=== PATIENT | male | born 1940 | race Caucasian/White ===

== ENCOUNTER 2017-02-08 04:30 | Inpatient (IN) | payer OTHER ==
[~2017-02-08] VITALS: Ht 167.6 cm; Wt 72.0 kg
[~2017-02-08 04:30] MED LIST: ASPI81TA28 PO; COEN1CAP17 PO; EZET10TA47 PO; FISH1CAP3 PO; LPT10 PO; TAMS0.4C59 PO
--- NOTE | 2017-02-08 04:53 | EMERGENCY ROOM VISIT NOTE ---
History Report prepared by [place]: Devaughn Trejo Under the Supervision of: Dr. Dayton Hernandez D.O. First contact with patient: 04:40 Chief Complaint: ABDOMINAL PAIN Stated Complaint: STOMACH History of Present Illness The patient is a 77 year old male who presents to the Emergency Room with complaints of persistent abdominal pain for the past two days. The pain is localized to the center of the abdomen and does not radiate to the back. The pain is rated 5/10 and severity and has not improved or worsened. The patient has not been eating or sleeping secondary to pain. He has not had any problems with his bowels since the onset of his pain. He denies any history of abdominal surgery. He denies any history of aneurysms or hernias. The patient does not have any known drug allergies. Source of History: patient Onset: two days ago Position: abdomen (center) Symptom Intensity: 5/10 Timing: other (persistent) Associated Symptoms: No back pain Review of Systems See HPI for pertinent positives and negatives. A total of ten systems were reviewed and were otherwise negative. Past Medical & Surgical Medical Problems: (1) Dizziness (2) HLD (hyperlipidemia) (3) HTN (hypertension) (4) Hypertensive urgency Family History FH: heart disease Hypertension Social History Smoking Status: Former Smoker Alcohol Use: none Drug Use: none Marital Status: Housing Status: lives with family Occupation Status: retired Current/Historical Medications Scheduled Aspirin (Aspirin Ec), 81 MG PO DAILY Atorvastatin (Atorvastatin Calcium), 10 MG PO DAILY Cholecalciferol (Vitamin D3), 2,000 UNITS PO DAILY Coenzyme Q10 (Ubidecarenone) (Co Q 10), 100 MG PO DAILY Ezetimibe (Zetia), 10 MG PO DAILY Fish Oil-Cholecalciferol (Fish Oil + D3), 1 CAPSULE PO DAILY Tamsulosin Hcl (Flomax), 0.4 MG PO DAILY Scheduled PRN Ibuprofen (Motrin), 600 MG PO Q6H PRN for Pain Allergies Coded Allergies: No Known Allergies (Unverified , 02/17/11) Physical Exam Vital Signs Date Time Temp Pulse Resp B/P Pulse Ox O2 Delivery O2 Flow Rate FiO2 02/08/17 06:15 74 18 126/66 95 Room Air 02/08/17 06:10 69 02/08/17 06:10 69 02/08/17 05:18 77 16 92 Room Air 02/08/17 04:38 36.4 93 20 145/67 96 Room Air Physical Exam GENERAL: Awake, alert, well-appearing, in no distress HENT: Normocephalic, atraumatic. Oropharynx unremarkable. EYES: Normal conjunctiva. Sclera non-icteric. NECK: Supple. No nuchal rigidity. FROM. No JVD. RESPIRATORY: Clear to auscultation. CARDIAC: Regular rate, normal rhythm. Extremities warm and well perfused. Pulses equal. ABDOMEN: Soft, non-distended. No tenderness to palpation. No rebound or guarding. No masses. RECTAL: Deferred. MUSCULOSKELETAL: Chest examination reveals no tenderness. The back is symmetrical on inspection without obvious abnormality. There is no CVA tenderness to palpation. No joint edema. LOWER EXTREMITIES: Calves are equal size bilaterally and non-tender. No edema. No discoloration. NEURO: Normal sensorium. No sensory or motor deficits noted. SKIN: No rash or jaundice noted. Medical Decision & Procedures ER Provider Diagnostic Interpretation: CT results as stated below per my review and radiologist interpretation CT ABDOMEN & PELVIS: Distended gallbladder with internal gallstones. There is associated wall thickening and mild pericholecystic edema. Findings are suspicious for acute cholecystitis. Correlate with clinical findings and sonogram. There is intrahepatic duct dilation. Common duct appears normal caliber. No pancreatic duct dilation. No pancreatitis or pyelonephritis. No hydronephrosis. Nonobstructive right renal stone. Bilateral renal cysts. Indeterminate hypodense lesion in right kidney on image 172 series 3. Infrarenal aneurysmal abdominal aorta measuring up to 3.5 cm with atherosclerotic disease. Small left inguinal hernia containing fat. Small hiatal hernia. Dependent vascular congestion / atelectasis. Normal appendix. No diverticulitis. No free air or fluid collections. No bowel obstruction. There is wall thickening of the sigmoid colon which may be due to incomplete distention. Correlate with clinical findings to exclude colitis. Thick walled bladder may be due to incomplete distention. Differential consideration is cystitis. Enlarged prostate with encroachment into bladder base. Radiologist: Leann Jasso MD. Laboratory Results 02/08/17 05:00 Red Blood Count 4.68, Mean Corpuscular Volume 88.5, Mean Corpuscular Hemoglobin 31.8, Mean Corpuscular Hemoglobin Concent 36.0, Mean Platelet Volume 9.9, Neutrophils (%) (Auto) 87.8, Lymphocytes (%) (Auto) 6.2, Monocytes (%) (Auto) 5.5, Eosinophils (%) (Auto) 0.1, Basophils (%) (Auto) 0.3, Neutrophils # (Auto) 6.92, Lymphocytes # (Auto) 0.49, Monocytes # (Auto) 0.43, Eosinophils # (Auto) 0.01, Basophils # (Auto) 0.02 02/08/17 05:00 Test 02/08/17 04:45 02/08/17 05:00 Urine Color ORANGE Urine Appearance CLEAR (CLEAR) Urine pH 5.5 (4.5-7.5) Urine Specific [place] 1.026 (1.000-1.030) Urine Protein NEG (NEG) Urine Glucose (UA) NEG (NEG) Urine Ketones 1+ (NEG) Urine Occult Blood NEG (NEG) Urine Nitrite POS (NEG) Urine Bilirubin 3+ (NEG) Urine Urobilinogen NEG (NEG) Urine Leukocyte Esterase TRACE (NEG) Urine WBC (Auto) 0 /hpf (0-5) Urine RBC (Auto) 0-4 /hpf (0-4) Urine Hyaline Casts (Auto) 1-5 /lpf (0-5) Urine Epithelial Cells (Auto) 0-5 /lpf (0-5) Urine Bacteria (Auto) NEG (NEG) White Blood Count 7.88 K/uL (4.8-10.8) Red Blood Count 4.68 M/uL (4.7-6.1) Hemoglobin 14.9 g/dL (14.0-18.0) Hematocrit 41.4 % (42-52) Mean Corpuscular Volume 88.5 fL (80-100) Mean Corpuscular Hemoglobin 31.8 pg (25-34) Mean Corpuscular Hemoglobin Concent 36.0 g/dl (32-36) Platelet Count 212 K/uL (130-400) Mean Platelet Volume 9.9 fL (7.4-10.4) Neutrophils (%) (Auto) 87.8 % Lymphocytes (%) (Auto) 6.2 % Monocytes (%) (Auto) 5.5 % Eosinophils (%) (Auto) 0.1 % Basophils (%) (Auto) 0.3 % Neutrophils # (Auto) 6.92 K/uL (1.4-6.5) Lymphocytes # (Auto) 0.49 K/uL (1.2-3.4) Monocytes # (Auto) 0.43 K/uL (0.11-0.59) Eosinophils # (Auto) 0.01 K/uL (0-0.5) Basophils # (Auto) 0.02 K/uL (0-0.2) RDW Standard Deviation 43.5 fL (36.4-46.3) RDW Coefficient of Variation 13.5 % (11.5-14.5) Immature Granulocyte % (Auto) 0.1 % Immature Granulocyte # (Auto) 0.01 K/uL (0.00-0.02) Anion Gap 8.0 mmol/L (3-11) Est Creatinine Clear Calc Drug Dose 51.5 ml/min Estimated GFR () 75.2 Estimated GFR (Non- 64.9 BUN/Creatinine Ratio 12.2 (10-20) Calcium Level 9.6 mg/dl (8.5-10.1) Total Bilirubin 6.4 mg/dl (0.2-1) Aspartate Amino Transf (AST/SGOT) 187 U/L (15-37) Alanine Aminotransferase (ALT/SGPT) 150 U/L (12-78) Alkaline Phosphatase 271 U/L (45-117) Total Protein 7.6 gm/dl (6.4-8.2) Albumin 4.1 gm/dl (3.4-5.0) Lipase 159 U/L (73-393) Laboratory results reviewed by me Medications Administered Medications (Trade) Dose Ordered Sig/Natalie Route Start Time Stop Time Status Last Admin Dose Admin Ondansetron HCl (Zofran Inj) 4 mg NOW STAT IV 02/08/17 05:03 02/08/17 05:05 DC 02/08/17 05:12 4 MG Morphine Sulfate (MoRPHine SULFATE INJ) 4 mg NOW STAT IV 02/08/17 05:05 02/08/17 05:06 DC 02/08/17 05:12 4 MG ED Course 0445: The patient was evaluated in room B11b. A complete history and physical exam was performed. 0503:Zofran 4 mg IV. 0505: Morphine Sulfate 4 mg IV. 0659: Flagyl / NSS 500 mg IV, Zosyn 4.5 gm IV. 0708: Discussed the case with Dr. Iyer, General Surgeon. Recommended medical admission. 0711: Reassessed the patient. He still complains of pain. 0712: Morphine Sulfate 4 mg IV. 0712: Discussed the case with [facility]ist. The patient will be evaluated. Medical Decision Differential diagnosis includes bowel obstruction, appendicitis, pancreatitis, colitis, gastroenteritis, constipation. Spoke with Dr Iyer surgery and hospitalist for admit at 715am Consults Time Called: 0655 Consulting Physician: Dr. Iyer, General Surgery Returned Call: [phone] Recommended medical admission. Additional Consults: Time Called: 0710 Consulted Physician: [facility]ist Returned Call: 0712 Additional Comments: The patient will be evaluated. Impression Primary Impression: Acute cholecystitis Additional Impressions: Hyperbilirubinemia Transaminitis Scribe Attestation The scribe's documentation has been prepared under my direction and personally reviewed by me in its entirety. I confirm that the note above accurately reflects all work, treatment, procedures, and medical decision making performed by me. Departure Information Dispostion Being Evaluated By Hospitalist Jayne Powell M.D. (PCP) Patient Instructions [facility] Problem Qualifiers
[2017-02-08] MEDS ORDERED: ONDANSETRON INJ 2 MG/ML 2 ML VIAL IV STA (05:03)
[2017-02-08] MEDS ORDERED: MoRPHine SULFATE 4 MG/ML 1 ML CARP\\VIAL IV STA ×2 (05:05→07:12)
[2017-02-08] MEDS ORDERED: OPTIRAY 320 IV PRN (05:15)
[2017-02-08 05:17] LABS: BASO % 0.3 %; BASO ABS # 0.02 K/uL (0-0.2); COMPLETE YES; EOS % 0.1 %; HEMATOCRIT 41.4 % (42-52); IG% 0.1 %; LYMPH % 6.2 %; LYMPH ABS # 0.49 K/uL (1.2-3.4); MEAN CELL VOLUME 88.5 fL (80-100); MEAN CORPUSCULAR HEMOGLOBIN 31.8 pg (25-34); MEAN PLATELET VOLUME 9.9 fL (7.4-10.4); MONO % 5.5 %; NEUT % 87.8 %; PLATELET COUNT 212 K/uL (130-400); RED BLOOD COUNT 4.68 M/uL (4.7-6.1); WHITE BLOOD COUNT 7.88 K/uL (4.8-10.8)
[2017-02-08 05:28] LABS: MANUAL MICROSCOPIC REQUIRED? NO; REVIEW REQ? NO; URINE APPEARANCE CLEAR (CLEAR); URINE BILIRUBIN 3+ (NEG); URINE COLOR ORANGE; URINE EPITHELIAL CELL AUTO 0-5 /lpf (0-5); URINE NITRITE POS (NEG); URINE PH 5.5 (4.5-7.5); URINE SPECIFIC GRAVITY 1.026 (1.000-1.030); UROBILINOGEN NEG (NEG); ZZUR CULT IF INDIC CLEAN CATCH NO
[2017-02-08 05:38] LABS: BUN/CREATININE RATIO 12.2 (10-20); CALCIUM 9.6 mg/dl (8.5-10.1); CREATININE 1.1 mg/dl (0.60-1.40); POTASSIUM 3.9 mmol/L (3.5-5.1)
[2017-02-08] MEDS ORDERED: METRONIDAZOLE 500MG / 100ML NSS IV STA (06:59)
[2017-02-08] MEDS ORDERED: PIPERACILLIN/TAZOBACTAM 4.5 GM/100ML D5W IV STA (06:59)
[2017-02-08] MEDS ORDERED: CHOL20007 PO (07:00)
[2017-02-08] MEDS ORDERED: IBUP-1450 PO (07:02)
[2017-02-08 07:45] VITALS: O2SAT 95; Ht 167.6 cm; Wt 72.0 kg
--- NOTE | 2017-02-08 08:12 | DIAGNOSTIC IMAGING REPORT ---
ABDOMEN AND PELVIS CT WITH IV CONTRAST CT DOSE: 337.07 mGy.cm HISTORY: Generalized abdominal pain. TECHNIQUE: Multiaxial CT images of the abdomen and pelvis were performed following the use of intravenous contrast. COMPARISON STUDY: None. FINDINGS: Mild dependent changes seen at the lung bases posteriorly. No fractures within the visualized osseous structures. Tiny fat-containing umbilical hernia. Mild bladder wall thickening. The prostate gland is enlarged. Right-sided nephrolithiasis. No hydronephrosis. Bilateral renal hypodense lesions. Dominant lesion is seen within the lower pole of the left kidney and measures 3.4 cm. This contains a septation. A 3.6 cm infrarenal abdominal aortic aneurysm. No bowel wall thickening or obstruction. Normal appendix. No retroperitoneal lymphadenopathy. The spleen and adrenal glands are unremarkable. Normal pancreas. Mild inflammatory change surrounding the mildly distended gallbladder. There are few small gallstones. There is mild wall thickening. This likely represents acute cholecystitis. There is mild intrahepatic bile duct dilatation. No hepatic or splenic masses. Tiny fat-containing left inguinal hernia. IMPRESSION: 1. Distended gallbladder demonstrating a slightly thickened wall and pericholecystic inflammatory change. There are few small gallstones. These findings are suspicious for acute cholecystitis. There is mild intrahepatic bile duct dilatation. The common bile duct is normal in caliber. 2. Bladder wall thickening. This could be due to a cystitis. Recommend correlation with urinalysis. 3. A 3.6 cm abdominal aortic aneurysm. 4. No bowel wall thickening or obstruction. 5. Additional findings as described above. Electronically signed by: Ramon Shaw M.D. 02/08/2017 8:10 AM Dictated Date/Time: 02/08/2017 8:04 AM
--- NOTE | 2017-02-08 08:13 | DIAGNOSTIC IMAGING REPORT ---
CHEST ONE VIEW PORTABLE HISTORY: acute cholecystitis COMPARISON: Chest 11/13/2013. FINDINGS: The lungs are clear. Cardiac silhouette is normal in size. No pleural effusions. No pneumothorax. IMPRESSION: No acute process. Electronically signed by: Ramon Shaw M.D. 02/08/2017 8:11 AM Dictated Date/Time: 02/08/2017 8:10 AM
[2017-02-08] MEDS ORDERED: ONDANSETRON INJ 2 MG/ML 2 ML VIAL IV PRN (08:15)
[2017-02-08] MEDS ORDERED: ACETAMINOPHEN 325 MG TAB PO PRN (08:15)
[2017-02-08] MEDS ORDERED: MoRPHine SULFATE 4 MG/ML 1 ML CARP\\VIAL IV PRN (08:15)
--- NOTE | 2017-02-08 08:17 | History and Physical ---
History & Physical Date & Time of Service: Feb 08, 2017 at 08:05 Chief Complaint: Stomach Primary Care Physician: Jayne Gabriel M.D. History of Present Illness Source: patient, clinic records, hospital records 77 year old male with history of Hypertension, BPH, Dyslipidemia presenting with epigastric pain x [address] Gabriel for Primary Care. Patient reports 2 day history of steady epigastric/central abdominal pain, dull , non radiating, no other associated symptoms. Denies fever/chills, nausea, changes with urination or bowel movements. The pain persisted and increased prompting ER consult. At the ER, he was received with stable vital signs overall, afebrile, no leukocytosis but with elevated LFTs. CT Abdomen showed cholelithiasis with possible cholecystitis. General Surgery notified. He has been given Zosyn, Flagyl and Morphine. On exam, patient was seen resting in bed, appears comfortable, very pleasant. He states his pain level has improved- now mild. No nausea, chills, chest pain, dyspnea. Denies other symptoms. Past Medical/Surgical History Medical Problems: (1) Dizziness Status: Resolved (2) HLD (hyperlipidemia) Status: Chronic (3) HTN (hypertension) Status: Chronic (4) Hypertensive urgency Status: Resolved Family History FH: heart disease Hypertension Social History Smoking Status: Former Smoker Smokeless Tobacco Use: No Alcohol Use: none Drug Use: none Marital Status: Occupational Status: retired Immunizations History of Influenza Vaccine: Yes History of Tetanus Vaccine?: Yes History of Pneumococcal: Yes History of Hepatitis B Vaccine: Unknown Allergies Coded Allergies: No Known Allergies (Unverified , 02/17/11) Home Medications Scheduled Aspirin (Aspirin Ec), 81 MG PO DAILY Atorvastatin (Atorvastatin Calcium), 10 MG PO DAILY Cholecalciferol (Vitamin D3), 2,000 UNITS PO DAILY Coenzyme Q10 (Ubidecarenone) (Co Q 10), 100 MG PO DAILY Ezetimibe (Zetia), 10 MG PO DAILY Fish Oil-Cholecalciferol (Fish Oil + D3), 1 CAPSULE PO DAILY Tamsulosin Hcl (Flomax), 0.4 MG PO DAILY Scheduled PRN Ibuprofen (Motrin), 600 MG PO Q6H PRN for Pain Review of Systems Constitutional- no fever; no weight loss Eyes- no acute visual changes ENT- no sinus drainage; no pharyngitis Pulmonary- no cough, no wheezing, no shortness of breath Cardiac- no chest pain, no palpitations, no orthopnea, no dependent edema GI- (+) as noted above - no dysuria, no hematuria Musculoskeletal- no arthralgias, no myalgias Derm- no rashes, no new skin lesions, no changing skin lesions Hematologic- no unusual bruising, no unusual bleeding Lymphatics- no adenopathy Endocrine- no polyuria or polydipsia; no heat or cold intolerance Neuro- no headaches, no focal neurologic symptoms Psych- no anxiety, no depression Physical Exam Vital Signs Date Time Temp Pulse Resp B/P Pulse Ox O2 Delivery O2 Flow Rate FiO2 02/08/17 06:15 74 18 126/66 95 Room Air 02/08/17 06:10 69 02/08/17 06:10 69 02/08/17 05:18 77 16 92 Room Air 02/08/17 04:38 36.4 93 20 145/67 96 Room Air General Appearance: WD/WN, no apparent distress Head: normocephalic, atraumatic Eyes: normal inspection, EOMI, sclerae normal ENT: pharynx normal, + pertinent finding (hard of hearing) Neck: supple, no adenopathy, thyroid normal, no JVD, trachea midline Respiratory/Chest: chest non-tender, lungs clear, normal breath sounds, no respiratory distress, no accessory muscle use Cardiovascular: regular rate, rhythm, no edema, no JVD, no murmur, normal peripheral pulses Abdomen/GI: soft, no organomegaly, + tenderness (epigastric region), + abnormal bowel sounds (hypoactive) Back: normal inspection, no CVA tenderness Extremities/Musculoskelatal: normal inspection, no calf tenderness, normal capillary refill, no pedal edema, normal range of motion 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, no motor/sensory deficits, alert, normal mood/affect, normal reflexes, oriented x 3 Skin: normal color, warm/dry, no rash Lymphatic: no adenopathy Diagnostics Laboratory Results Results Past 24 Hours Test 02/08/17 04:45 02/08/17 05:00 Range/Units Urine Color ORANGE Urine Appearance CLEAR CLEAR Urine pH 5.5 4.5-7.5 Urine Specific [place] 1.026 1.000-1.030 Urine Protein NEG NEG Urine Glucose (UA) NEG NEG Urine Ketones 1+ NEG Urine Occult Blood NEG NEG Urine Nitrite POS NEG Urine Bilirubin 3+ NEG Urine Urobilinogen NEG NEG Urine Leukocyte Esterase TRACE NEG Urine WBC (Auto) 0 0-5 /hpf Urine RBC (Auto) 0-4 0-4 /hpf Urine Hyaline Casts (Auto) 1-5 0-5 /lpf Urine Epithelial Cells (Auto) 0-5 0-5 /lpf Urine Bacteria (Auto) NEG NEG White Blood Count 7.88 4.8-10.8 K/uL Red Blood Count 4.68 4.7-6.1 M/uL Hemoglobin 14.9 14.0-18.0 g/dL Hematocrit 41.4 42-52 % Mean Corpuscular Volume 88.5 80-100 fL Mean Corpuscular Hemoglobin 31.8 25-34 pg Mean Corpuscular Hemoglobin Concent 36.0 32-36 g/dl Platelet Count 212 130-400 K/uL Mean Platelet Volume 9.9 7.4-10.4 fL Neutrophils (%) (Auto) 87.8 % Lymphocytes (%) (Auto) 6.2 % Monocytes (%) (Auto) 5.5 % Eosinophils (%) (Auto) 0.1 % Basophils (%) (Auto) 0.3 % Neutrophils # (Auto) 6.92 1.4-6.5 K/uL Lymphocytes # (Auto) 0.49 1.2-3.4 K/uL Monocytes # (Auto) 0.43 0.11-0.59 K/uL Eosinophils # (Auto) 0.01 0-0.5 K/uL Basophils # (Auto) 0.02 0-0.2 K/uL RDW Standard Deviation 43.5 36.4-46.3 fL RDW Coefficient of Variation 13.5 11.5-14.5 % Immature Granulocyte % (Auto) 0.1 % Immature Granulocyte # (Auto) 0.01 0.00-0.02 K/uL Sodium Level 139 136-145 mmol/L Potassium Level 3.9 3.5-5.1 mmol/L Chloride Level 105 98-107 mmol/L Carbon Dioxide Level 26 21-32 mmol/L Anion Gap 8.0 3-11 mmol/L Blood Urea Nitrogen 13 7-18 mg/dl Creatinine 1.10 0.60-1.40 mg/dl Est Creatinine Clear Calc Drug Dose 51.5 ml/min Estimated GFR () 75.2 Estimated GFR (Non- 64.9 BUN/Creatinine Ratio 12.2 10-20 Random Glucose 122 70-99 mg/dl Calcium Level 9.6 8.5-10.1 mg/dl Total Bilirubin 6.4 0.2-1 mg/dl Direct Bilirubin 4.3 0-0.2 mg/dl Aspartate Amino Transf (AST/SGOT) 187 15-37 U/L Alanine Aminotransferase (ALT/SGPT) 150 12-78 U/L Alkaline Phosphatase 271 45-117 U/L Total Protein 7.6 6.4-8.2 gm/dl Albumin 4.1 3.4-5.0 gm/dl Lipase 159 73-393 U/L Diagnostic Radiology CT ABDOMEN & PELVIS: INITIAL REPORT Distended gallbladder with internal gallstones. There is associated wall thickening and mild pericholecystic edema. Findings are suspicious for acute cholecystitis. Correlate with clinical findings and sonogram. There is intrahepatic duct dilation. Common duct appears normal caliber. No pancreatic duct dilation. No pancreatitis or pyelonephritis. No hydronephrosis. Nonobstructive right renal stone. Bilateral renal cysts. Indeterminate hypodense lesion in right kidney on image 172 series 3. Infrarenal aneurysmal abdominal aorta measuring up to 3.5 cm with atherosclerotic disease. Small left inguinal hernia containing fat. Small hiatal hernia. Dependent vascular congestion / atelectasis. Normal appendix. No diverticulitis. No free air or fluid collections. No bowel obstruction. There is wall thickening of the sigmoid colon which may be due to incomplete distention. Correlate with clinical findings to exclude colitis. Thick walled bladder may be due to incomplete distention. Differential consideration is cystitis. Enlarged prostate with encroachment into bladder base. Radiologist: Leann Jasso MD. EKG sinus rhythm, HR 79, no acute ischemia or infarct Impression Assessment and Plan 77 year old male with history of Hypertension, BPH, Dyslipidemia presenting with epigastric pain x 2 days. ACUTE CHOLECYSTITIS CHOLELITHIASIS - no signs of sepsis - start Cipro + Metro IV NSS NPO Morphine IV PRN - consult Dr. Iyer - no medical contraindication for possible surgery patient is low to moderate risk for cardiopulmonary complications ABDOMINAL AORTIC ANEURYSM - 3,5cm - already on aspirin, statin - needs close ff up as outpatient RIGHT RENAL STONE - no obstruction - renal function stable DVT prophylaxis - SCDs Code Status - full code per patient Disposition anticipate d/c to home when medically stable discussed plan of care with patient and family, they are agreeable with plan of care VTE Prophylaxis VTE Risk Assessment Done? Y/N: Yes Risk Level: Moderate
[2017-02-08 10:20] VITALS: O2SAT 94
[2017-02-08 10:35] VITALS: BP 159/73; PULSE 75; TEMP 36.6
[2017-02-08] MEDS: ATORVASTATIN 10 MG TAB PO SCH ×2 (11:52→11:57)
[2017-02-08] MEDS: NSS + 20MEQ KCL 1000ML 1,000 ML IV SCH ×2 (11:52→21:14)
[2017-02-08] MEDS: CIPROFLOXACIN / D5W 400 MG in PREMIXED IN D5W 200 ML IV SCH ×2 (11:52→23:46)
[2017-02-08] MEDS: TAMSULOSIN HCL 0.4 MG CAP PO SCH ×2 (11:52→11:57)
[2017-02-08] MEDS ORDERED: PNEUMOCOCCAL ADMINISTRATION CHARGE ONE (12:30)
[2017-02-08] MEDS ORDERED: PNEUMOCOCCAL POLYSACCHARIDES 25 MCG/0.5 ML VIAL/SYR IM. ONE (12:45)
[2017-02-08] MEDS ORDERED: NURSING DECISION MEDICATION ORDER SCH (13:00)
[2017-02-08 15:02] VITALS: BP 147/81; PULSE 76; TEMP 37.1; O2SAT 90
[2017-02-08 16:00] VITALS: O2SAT 90
[2017-02-08] MEDS: METRONIDAZOLE / NSS 500 MG in PREMIXED NSS 100 ML IV SCH ×2 (17:45→23:46)
--- NOTE | 2017-02-08 18:53 | CONSULTATION REPORT ---
DATE OF CONSULTATION: 02/08/2017 SUMMARY: This is a 77-year-old gentleman that I was asked to see. In fact, the ER physicians called me even though he is going to be admitted to the medical service with what appeared to be common bile duct stones and elevated liver function tests. As I see him this afternoon, his son is on his bedside. Behzad is in no acute distress. In fact, he just came back from a vacation in [place] not too long ago. He is pretty active around the house, really denies any chest pain, any shortness of breath, and any other systemic problem except longstanding history of reflux. He has never had any documentation or workup for his reflux. His present symptomatology started about 2 weeks ago of not feeling right, some excess reflux symptoms, some abdominal pain, but did notice that urine was changing about 2 weeks ago. It progressively got worse to the point that he found out that he could not sleep very well and decided to come into the Emergency Room last evening. PAST MEDICAL HISTORY: Included hyperlipidemia and hypertension. FAMILY HISTORY: Really noncontributory. SOCIAL HISTORY: He is a former smoker. HOME MEDICINES: Indicated in the medicine reconciliation section, reinstate it. This was reviewed. The only medicine he takes on a p.r.n. basis is Motrin. ALLERGIES: He has no known allergies. REVIEW OF SYSTEMS: Denies any changes in GI or symptoms or neurological or neurovascular problem. Denies any changes in weight. Denies any back pain. PHYSICAL EXAM: GENERAL: As I see him now, a very pleasant 77-year-old gentleman, slight hearing loss, son is at bedside. HEAD: Normocephalic. EYES: Slightly injected sclerae icterus. NECK: No cervical lymphadenopathy. Carotid without any bruits. HEART: Normal sinus rhythm. LUNGS: Clear. ABDOMEN: Completely benign. He has no tenderness in the right upper quadrant at this time. EXTREMITIES: No peripheral edema. The imaging showed findings consistent with acute cholecystitis, mild intrahepatic bile duct dilatation, no obvious stone in the common bile duct, but a clinical picture certainly visualizes and I will consider that the patient had a common bile duct stone or more so with associated distention of the gallbladder. At this point, we will await gastroenterology input, to consider an ERCP and at the same time consider whether or not to take out his gallbladder or do it in interval. I do not think that this is a malignancy, although that must be ruled out. This was discussed with the patient and the son, and we will plan accordingly. The patient is hungry, therefore, I suspect we will go ahead and start him on some liquids, there is no reason to hold this tonight. MTDD
--- NOTE | 2017-02-08 21:12 | DIAGNOSTIC IMAGING REPORT ---
MRCP HISTORY: elevated lft r/o cbd pathology TECHNIQUE: MRCP of the abdomen was performed according to standard department protocol without the use of contrast. COMPARISON STUDY: Abdomen and pelvis CT 02/08/2017. FINDINGS: Trace perihepatic edema. There is also mild periportal edema. Distended gallbladder with mild gallbladder wall thickening measuring up to 3.3 mm and trace pericholecystic fluid. There are few small gallstones present. The spleen, adrenal glands, and pancreas are unremarkable. No retroperitoneal lymphadenopathy. Partially visualized 3.3 cm abdominal aortic aneurysm. Small amount of ascites tracking along the right pericolic gutter. Bilateral T2 hyperintense lesions within the kidneys likely represent cysts. No hydronephrosis. Normal caliber main pancreatic duct. Common bile duct is diffusely narrowed and therefore not well visualized. No definite filling defects within the common bile duct. Common bile duct measures between 1 and 2 mm. There is mild intrahepatic bile duct dilatation to the level of the extrahepatic bile duct bifurcation. IMPRESSION: 1. Mild intrahepatic bile duct dilatation to the level of the extrahepatic bile duct bifurcation. There is severely narrowed/decompressed common bile duct. No filling defects seen within the common bile duct. These findings raise the possibility of an occult obstructing lesion at the bifurcation of the extra hepatic bile ducts. Follow-up ERCP is recommended to exclude the possibility of a cholangiocarcinoma. 2. Periportal edema with trace perihepatic ascites. This could be due to underlying hepatic pathology such as a hepatitis. 3. Mildly distended gallbladder containing a few small stones and mild gallbladder wall thickening. This raises the possibility of acute cholecystitis. In addition, a hepatitis could also result in diffuse gallbladder wall thickening. Clinical correlation recommended. Electronically signed by: Ramon Shaw M.D. 02/08/2017 9:10 PM Dictated Date/Time: 02/08/2017 8:58 PM
[2017-02-08 23:25] VITALS: BP 128/77; PULSE 84; TEMP 36.9; O2SAT 91
[2017-02-09] MEDS: NSS + 20MEQ KCL 1000ML 1,000 ML IV SCH ×2 (06:27→17:27)
[2017-02-09 07:04] LABS: BASO % 0.2 %; BASO ABS # 0.01 K/uL (0-0.2); COMPLETE YES; EOS % 1.2 %; HEMATOCRIT 39.5 % (42-52); IG% 0.2 %; LYMPH % 9.8 %; LYMPH ABS # 0.56 K/uL (1.2-3.4); MEAN CELL VOLUME 89.4 fL (80-100); MEAN CORPUSCULAR HEMOGLOBIN 31.2 pg (25-34); MEAN CORPUSCULAR HGB CONC 34.9 g/dl (32-36); MEAN PLATELET VOLUME 9.8 fL (7.4-10.4); MONO % 9.8 %; NEUT % 78.8 %; PLATELET COUNT 172 K/uL (130-400); RED BLOOD COUNT 4.42 M/uL (4.7-6.1); WHITE BLOOD COUNT 5.72 K/uL (4.8-10.8)
[2017-02-09] MEDS ORDERED: FENTANYL CITRATE INJ 50 MCG/1 ML 2 ML VIAL ONE (07:19)
[2017-02-09] MEDS ORDERED: MIDAZOLAM HCL 1 MG/ML 2ML VIAL ONE (07:19)
[2017-02-09] MEDS ORDERED: GLYCOPYRROLATE INJ 0.2 MG/ML VIAL ONE (07:19)
[2017-02-09] MEDS ORDERED: ROCURONIUM BROMIDE 10 MG/ML 5 ML VIAL ONE (07:19)
[2017-02-09] MEDS ORDERED: ONDANSETRON INJ 2 MG/ML 2 ML VIAL ONE (07:19)
[2017-02-09] MEDS ORDERED: DEXAMETHASONE SOD INJ 4 MG/ML VIAL ONE (07:19)
[2017-02-09] MEDS ORDERED: LIDOCAINE HCL 2% 2 ML VIAL (20MG/ML) ONE (07:19)
[2017-02-09] MEDS ORDERED: NEOSTIGMINE METHYLSULFATE 5 MG/5 ML SYR ONE (07:19)
[2017-02-09] MEDS ORDERED: PROPOFOL IV EMULSION 10 MG/ML 20 ML VIAL IV ONE (07:19)
[2017-02-09 07:20] VITALS: O2SAT 92
[2017-02-09] MEDS: METRONIDAZOLE / NSS 500 MG in PREMIXED NSS 100 ML IV SCH ×3 (07:35→23:40)
[2017-02-09 07:37] VITALS: BP 152/82; PULSE 79; TEMP 36.6; O2SAT 92
[2017-02-09 07:42] LABS: BUN/CREATININE RATIO 10.5 (10-20); CALCIUM 8.9 mg/dl (8.5-10.1); POTASSIUM 3.8 mmol/L (3.5-5.1)
[2017-02-09] MEDS: TAMSULOSIN HCL 0.4 MG CAP PO SCH (09:29)
[2017-02-09] MEDS: ATORVASTATIN 10 MG TAB PO SCH (09:29)
--- NOTE | 2017-02-09 10:11 | SURGERY PROGRESS NOTE ---
DATE: 02/09/2017 Behzad is resting comfortably. There is really no change from yesterday. His MRCP results were noted and I discussed with the patient. His last vitals showed a temperature of 36.6, pulse 79, respirations 16, blood pressure 152/82, O2 sats 92 on room air. I\T\O, urine output is 1075 overnight. Laboratory schroeder, the liver function tests are pretty much unchanged, as one would expect with the pathology that was seen by the MRCP. The abdomen is benign. We will await gastroenterology's input, but at this time, there is nothing surgical. I suspect that this may be a malignancy in the common bile duct. The patient, of note, did have colonoscopy that was done at [facility] approximately 3 years ago. There is no evidence of any colonic primary that would give the appearance, possibly, of a Klatskin's tumor.
--- NOTE | 2017-02-09 11:04 | GASTROINTESTINAL CONSULTATION ---
DATE OF CONSULTATION: 02/09/2017 REQUESTING PHYSICIAN: Dr. Desmond Del Rosario. CHIEF COMPLAINT: Abdominal discomfort. HISTORY OF PRESENT ILLNESS: The patient is a 77-year-old male with a past medical history notable for hypertension, BPH and hypercholesterolemia, who presented with several days of right-sided abdominal discomfort. The patient notes that the symptoms have been coming and going over several weeks and last for several hours at a time. The patient underwent a CT scan in the Emergency Room, notable for gallstones and sludge within the gallbladder. Of note, he was also found to be jaundiced on his labs. Although, the patient notes that he has not noted this at home. He denies having fevers, chills, sweats, or rigors. The patient notes that his abdominal discomfort has improved significantly since being admitted yesterday. The patient has had no abdominal surgeries before. Denies having difficulty swallowing, pain with swallowing or recent weight changes. PAST MEDICAL HISTORY: 1. Hypercholesterolemia. 2. Hypertension. OUTPATIENT MEDICATIONS: 1. Aspirin 81 mg daily. 2. Atorvastatin 10 mg daily. 3. Vitamin D3. 4. Zetia 10 mg daily. 5. Fish oil. 6. Flomax. 7. P.r.n. medication is ibuprofen. ALLERGIES: No drug allergies noted. SOCIAL HISTORY: The patient is a prior smoker. Denies alcohol or drug use presently. Lives at home. FAMILY HISTORY: The patient does have a history of heart disease in his father. REVIEW OF SYSTEMS: CONSTITUTIONAL: No fevers and no weight loss. EYES: No visual changes noted. ENT: No drainage noted from his sinuses. PULMONARY: No cough and no shortness of breath. CARDIAC: No chest pain. GASTROINTESTINAL: Please see history of present illness. GENITOURINARY: No dysuria. MUSCULOSKELETAL: No arthralgias and no myalgias. DERMATOLOGIC: No rashes noted. The patient denies itching today. HEMATOLOGIC: No bleeding and no easy bruising noted. ENDOCRINE: No polyuria or polydipsia noted. NEUROLOGIC: No headaches. No double vision noted. PSYCHIATRIC: No depression. No suicidal ideation. PHYSICAL EXAMINATION: VITAL SIGNS: Temperature 36.6, pulse 79, respiratory rate 16, and blood pressure is 152/82. HEENT: Mild scleral icterus noted. No JVD noted. LUNGS: Clear to auscultation. CARDIAC: Regular rate and rhythm without murmur. ABDOMEN: Soft and nontender. No hepatosplenomegaly appreciated. No caput medusa noted. No Youssef's sign noted. EXTREMITIES: No edema noted. DERMATOLOGY: No spider nevi noted. Mild icterus noted. NEUROLOGIC: Cranial nerves grossly intact. Motor grossly intact. LABORATORIES: White blood cell count 5.7, hemoglobin is 13.8, hematocrit is 39.5, and platelet count is 172. Chemistry -- sodium is 142, potassium is 3.8, chloride is 108, BUN 10, creatinine 1.0, and calcium is 8.9. Total bilirubin is 5.8. AST 141, ALT 119, and alkaline phosphatase 329. IMAGING STUDIES: MRI on 02/08/2017 notable for mild intrahepatic ductal dilation without extrahepatic duct dilation. Narrowing of the common bile duct, suggestive of mass at the bifurcation. RECOMMENDATIONS: The patient presents with jaundice and a history of abdominal pain. Imaging is concerning for a possible mass at the mid portion of the common bile duct extending to the bifurcaion. Given this, I would suggest that we proceed with endoscopic ultrasound and possible ERCP in a few days as the patient is presently on aspirin and fish oil, which would increase his chance of bleeding with fine needle aspiration. RECOMMENDATIONS: 1. Advance diet as tolerated. 2. Discontinue aspirin and fish oil. 3. Endoscopic ultrasound and ERCP to be scheduled. 4. If the patient desires discharge, we could work to do this as an outpatient. Please call with any questions or concerns. MARK
[2017-02-09] MEDS: CIPROFLOXACIN / D5W 400 MG in PREMIXED IN D5W 200 ML IV SCH ×2 (12:38→23:40)
[2017-02-09 15:10] VITALS: BP 117/74; PULSE 76; TEMP 36.6; O2SAT 95
--- NOTE | 2017-02-09 16:23 | Progress Note ---
Medicine Progress Note Date & Time of Visit: Feb 09, 2017 at 16:19. Subjective seen resting in bed, comfortable states his epigastric pain has resolved no nausea/vomiting tolerating clears no fever/chills, chest pain, dyspnea, palpitations no other symptom Objective Last 8 Hrs Date Time Temp Pulse Resp B/P Pulse Ox O2 Delivery O2 Flow Rate FiO2 02/09/17 15:10 36.6 76 16 117/74 95 Room Air Physical Exam: General-oriented x 3, not in distress, speaks in sentences with no effort Eyes- anicteric ENT- oropharynx clear Neck- supple, no JVD Lungs- clear breath sounds bilaterally Heart- regular rhythm; no murmur, normal rate Abdomen- normal bowel sounds, non distended, soft, nontender Extremities- no pretibial edema, no calf tenderness Neuro- alert, oriented x 3; no gross deficits Skin- warm & dry Laboratory Results: Last 24 Hours Test 02/09/17 06:55 02/09/17 10:10 White Blood Count 5.72 K/uL Red Blood Count 4.42 M/uL Hemoglobin 13.8 g/dL Hematocrit 39.5 % Mean Corpuscular Volume 89.4 fL Mean Corpuscular Hemoglobin 31.2 pg Mean Corpuscular Hemoglobin Concent 34.9 g/dl Platelet Count 172 K/uL Mean Platelet Volume 9.8 fL Neutrophils (%) (Auto) 78.8 % Lymphocytes (%) (Auto) 9.8 % Monocytes (%) (Auto) 9.8 % Eosinophils (%) (Auto) 1.2 % Basophils (%) (Auto) 0.2 % Neutrophils # (Auto) 4.51 K/uL Lymphocytes # (Auto) 0.56 K/uL Monocytes # (Auto) 0.56 K/uL Eosinophils # (Auto) 0.07 K/uL Basophils # (Auto) 0.01 K/uL RDW Standard Deviation 44.4 fL RDW Coefficient of Variation 13.6 % Immature Granulocyte % (Auto) 0.2 % Immature Granulocyte # (Auto) 0.01 K/uL Sodium Level 142 mmol/L Potassium Level 3.8 mmol/L Chloride Level 108 mmol/L Carbon Dioxide Level 24 mmol/L Anion Gap 10.0 mmol/L Blood Urea Nitrogen 10 mg/dl Creatinine 1.00 mg/dl Est Creatinine Clear Calc Drug Dose 56.7 ml/min Estimated GFR () 84.4 Estimated GFR (Non- 72.8 BUN/Creatinine Ratio 10.5 Random Glucose 89 mg/dl Calcium Level 8.9 mg/dl Total Bilirubin 5.8 mg/dl Direct Bilirubin 4.4 mg/dl Aspartate Amino Transf (AST/SGOT) 141 U/L Alanine Aminotransferase (ALT/SGPT) 119 U/L Alkaline Phosphatase 326 U/L Total Protein 6.7 gm/dl Albumin 3.4 gm/dl Prothrombin Time 11.0 SECONDS Prothromb Time International Ratio 1.0 Assessment & Plan 77 year old male with history of Hypertension, BPH, Dyslipidemia presenting with epigastric pain x 2 days. CHOLELITHIASIS, POSSIBLE CHOLECYSTITIS R/.O CBD MASS - no signs of sepsis - MRCP noted - started Cipro + Metro IV Morphine IV PRN - consulted Dr. Iyer and Dr. Chapa - plan for possible ERCP on advance diet to full liquids for dinner continue Cipro and Metro IV Day 2 ABDOMINAL AORTIC ANEURYSM - 3,5cm - already on aspirin, statin - needs close ff up as outpatient RIGHT RENAL STONE - no obstruction - renal function stable DVT prophylaxis - SCDs for now in anticipation of possible procedures Code Status - full code per patient Disposition anticipate d/c to home when medically stable Current Inpatient Medications: Current Inpatient Medications Medications (Trade) Dose Ordered Sig/Natalie Route Start Time Stop Time Status Last Admin Dose Admin Ioversol 125 ml 125 ml UD PRN IV 02/08/17 05:15 02/12/17 05:14 Potassium Chloride/Sodium Chloride 1,000 ml @ 60 mls/hr [id number] IV 02/08/17 11:00 02/09/17 06:27 100 MLS/HR Ciprofloxacin/ Dextrose 400 mg/ Prmx 200 ml @ 100 mls/hr Q12@0000,1200 IV 02/08/17 12:00 02/18/17 11:59 02/09/17 12:38 100 MLS/HR Metronidazole/Prmx (Flagyl / Nss/ Premixed Nss) 100 ml @ 100 mls/hr Q8@0000,0800,1600 IV 02/08/17 16:00 02/18/17 07:59 02/09/17 07:35 100 MLS/HR Acetaminophen (Tylenol Tab) 650 mg Q4H PRN PO 02/08/17 08:15 03/10/17 08:14 Ondansetron HCl (Zofran Inj) 4 mg Q6H PRN IV 02/08/17 08:15 03/10/17 08:14 Atorvastatin Calcium (Lipitor Tab) 10 mg DAILY PO 02/08/17 12:00 03/10/17 11:59 02/09/17 09:29 10 MG Tamsulosin HCl (Flomax Cap) 0.4 mg DAILY PO 02/08/17 12:00 03/10/17 11:59 02/09/17 09:29 0.4 MG Morphine Sulfate (MoRPHine SULFATE INJ) 3 mg Q4H PRN IV 02/08/17 08:15 02/22/17 08:14 02/08/17 10:47 3 MG
[2017-02-09 23:41] VITALS: BP 170/87; PULSE 80; TEMP 36.9; O2SAT 94
[2017-02-10 00:43] VITALS: BP 173/82
[2017-02-10 02:01] VITALS: BP 166/80
[2017-02-10 05:59] LABS: BASO % 0.2 %; BASO ABS # 0.01 K/uL (0-0.2); COMPLETE YES; EOS % 2.5 %; HEMATOCRIT 40.5 % (42-52); IG% 0.2 %; LYMPH % 11.2 %; LYMPH ABS # 0.62 K/uL (1.2-3.4); MEAN CORPUSCULAR HGB CONC 34.8 g/dl (32-36); MEAN PLATELET VOLUME 9.9 fL (7.4-10.4); MONO % 8.3 %; NEUT % 77.6 %; PLATELET COUNT 183 K/uL (130-400); RED BLOOD COUNT 4.55 M/uL (4.7-6.1); WHITE BLOOD COUNT 5.52 K/uL (4.8-10.8)
[2017-02-10 06:05] VITALS: BP 159/86
[2017-02-10 06:45] LABS: BUN/CREATININE RATIO 9.4 (10-20); CALCIUM 9.2 mg/dl (8.5-10.1); CREATININE 0.89 mg/dl (0.60-1.40); POTASSIUM 3.8 mmol/L (3.5-5.1)
[2017-02-10 07:20] VITALS: BP 170/93; PULSE 77; TEMP 36.7; O2SAT 96
[2017-02-10] MEDS: METRONIDAZOLE / NSS 500 MG in PREMIXED NSS 100 ML IV SCH ×3 (07:42→23:45)
--- NOTE | 2017-02-10 08:11 | Clinical Documentation Query ---
CLINICAL DOCUMENTATION QUERY 77 year old male who presents to the Emergency Room with complaints of persistent abdominal pain. Current diagnosis includes gallstones with acute cholecystitis. Sx consult suggests a malignancy of the common bile duct. GI consult states, Imaging is concerning for a possible mass at the mid portion of the common bile duct extending to the bifurcation. In your clinical opinion is this patient being managed for: ( X ) Possible Common bile duct cancer evidence by mass causing acute cholecystitis. ( ) Other explanation of clinical findings (Please Explain) ( ) Unable to determine (Please Define) ( ) Need to Discuss ( ) Not Agree The medical record reflects the following clinical findings, treatment, and risk factors. Clinical Indicators: As above. MRCP revealed mild intrahepatic bile duct dilatation to the level of the extrahepatic bile duct bifurcation. There is severely narrowed/decompressed common bile duct. No filling defects seen within the common bile duct. These findings raise the possibility of an occult obstructing lesion at the bifurcation of the extra hepatic bile ducts. Treatment: ERCP, GI & Surgical consult, Risk Factors: Age, Please clarify and document your clinical opinion in the progress notes and discharge summary. Terms such as "probable", "suspected", "likely", "questionable", "possible", or "still to be ruled out" are acceptable. IF IN AGREEMENT, YOU MUST DOCUMENT ABOVE DIAGNOSTIC STATEMENT IN DAILY PROGRESS NOTES AND DISCHARGE SUMMARY. This document is not part of the patient's record. Thank You, Garth Bautista, ALONA [phone]
[2017-02-10] MEDS: ATORVASTATIN 10 MG TAB PO SCH (08:48)
[2017-02-10] MEDS: TAMSULOSIN HCL 0.4 MG CAP PO SCH (08:48)
[2017-02-10] MEDS: NSS + 20MEQ KCL 1000ML 1,000 ML IV SCH (10:36)
--- NOTE | 2017-02-10 11:21 | Gastroenterology Progress Note ---
Progress Note Date of Service: February 10, 2017 Subjective Pt evaluation today including: conversation w/ patient, physical exam, chart review, lab review, review of studies, review of inpatient medication list Mr. Nielsen is a 77 yr old male admitted on 02/08 with abd pain, hyperbilirubinemia, imaging with dilated bile ducts. T bili is 2.8 (down from 6.4), AST is 148 (down from 187), ALT is 115 (down from 150), ALk Phos is 367. He remains afebrile w/o leukocytosis. Pain is resolved. He is tolerating a liquid diet. No nausea/vomiting. Awaiting EUS/ERCP planned for tomorrow. Review of Systems Constitutional: No fever ENT: No hearing loss Respiratory: No cough Cardiac: No chest pain Abdomen: + jaundice, + pain (resolved), No GI bleeding, No constipation, No diarrhea, No dysphagia, No nausea, No odynophagia, No vomiting Male : No dysuria Psych: No depression symptoms Heme: No abnormal bleeding/bruising Endo: No fatigue Skin: + jaundice (mild), No rash Medications Current Inpatient Medications Medications (Trade) Dose Ordered Sig/Natalie Route Start Time Stop Time Status Last Admin Dose Admin Ioversol 125 ml 125 ml UD PRN IV 02/08/17 05:15 02/12/17 05:14 Potassium Chloride/Sodium Chloride 1,000 ml @ 60 mls/hr [id number] IV 02/08/17 11:00 03/10/17 10:59 02/10/17 10:36 60 MLS/HR Ciprofloxacin/ Dextrose 400 mg/ Prmx 200 ml @ 100 mls/hr Q12@0000,1200 IV 02/08/17 12:00 02/18/17 11:59 02/09/17 23:40 100 MLS/HR Metronidazole/Prmx (Flagyl / Nss/ Premixed Nss) 100 ml @ 100 mls/hr Q8@0000,0800,1600 IV 02/08/17 16:00 02/18/17 07:59 02/10/17 07:42 100 MLS/HR Acetaminophen (Tylenol Tab) 650 mg Q4H PRN PO 02/08/17 08:15 03/10/17 08:14 Ondansetron HCl (Zofran Inj) 4 mg Q6H PRN IV 02/08/17 08:15 03/10/17 08:14 Atorvastatin Calcium (Lipitor Tab) 10 mg DAILY PO 02/08/17 12:00 03/10/17 11:59 02/10/17 08:48 10 MG Tamsulosin HCl (Flomax Cap) 0.4 mg DAILY PO 02/08/17 12:00 03/10/17 11:59 02/10/17 08:48 0.4 MG Morphine Sulfate (MoRPHine SULFATE INJ) 3 mg Q4H PRN IV 02/08/17 08:15 02/22/17 08:14 02/08/17 10:47 3 MG Objective Vital Signs Date Time Temp Pulse Resp B/P Pulse Ox O2 Delivery O2 Flow Rate FiO2 02/10/17 07:20 36.7 77 16 170/93 96 Room Air 02/10/17 07:15 Room Air 02/10/17 06:05 159/86 02/10/17 02:01 166/80 02/10/17 00:43 173/82 02/09/17 23:41 36.9 80 14 170/87 94 Room Air 02/09/17 23:35 Room Air 02/09/17 15:45 Room Air 02/09/17 15:10 36.6 76 16 117/74 95 Room Air Physical Exam General Appearance: no apparent distress ENT: pharynx normal Neck: thyroid normal, no JVD Respiratory/Chest: lungs clear Cardiovascular: regular rate, rhythm, no JVD, no murmur Abdomen: non tender, soft Extremities: non-tender, no pedal edema Neurologic/Psych: alert, normal mood/affect, oriented x 3 Skin: + jaundice (mild) Laboratory Results Last 24 Hours Test 02/10/17 05:38 White Blood Count 5.52 K/uL Red Blood Count 4.55 M/uL Hemoglobin 14.1 g/dL Hematocrit 40.5 % Mean Corpuscular Volume 89.0 fL Mean Corpuscular Hemoglobin 31.0 pg Mean Corpuscular Hemoglobin Concent 34.8 g/dl Platelet Count 183 K/uL Mean Platelet Volume 9.9 fL Neutrophils (%) (Auto) 77.6 % Lymphocytes (%) (Auto) 11.2 % Monocytes (%) (Auto) 8.3 % Eosinophils (%) (Auto) 2.5 % Basophils (%) (Auto) 0.2 % Neutrophils # (Auto) 4.28 K/uL Lymphocytes # (Auto) 0.62 K/uL Monocytes # (Auto) 0.46 K/uL Eosinophils # (Auto) 0.14 K/uL Basophils # (Auto) 0.01 K/uL RDW Standard Deviation 44.2 fL RDW Coefficient of Variation 13.5 % Immature Granulocyte % (Auto) 0.2 % Immature Granulocyte # (Auto) 0.01 K/uL Sodium Level 141 mmol/L Potassium Level 3.8 mmol/L Chloride Level 107 mmol/L Carbon Dioxide Level 24 mmol/L Anion Gap 10.0 mmol/L Blood Urea Nitrogen 8 mg/dl Creatinine 0.89 mg/dl Est Creatinine Clear Calc Drug Dose 63.7 ml/min Estimated GFR () 96.3 Estimated GFR (Non- 83.1 BUN/Creatinine Ratio 9.4 Random Glucose 106 mg/dl Calcium Level 9.2 mg/dl Total Bilirubin 2.8 mg/dl Direct Bilirubin 1.7 mg/dl Aspartate Amino Transf (AST/SGOT) 148 U/L Alanine Aminotransferase (ALT/SGPT) 115 U/L Alkaline Phosphatase 367 U/L Total Protein 7.1 gm/dl Albumin 3.5 gm/dl MRCP 02/08/17: Mild intrahepatic bile duct dilatation to the level of the extrahepatic bile duct bifurcation. There is severely narrowed/decompressed common bile duct. No filling defects seen within the common bile duct. These findings raise the possibility of an occult obstructing lesion at the bifurcation of the extra hepatic bile ducts. Follow-up ERCP is recommended to exclude the possibility of a cholangiocarcinoma. Assessment and Plan Mr. Nielsen is a 77 yr old male with abdominal pain, jaundice, imaging suggestive of bile duct dilation to the level of the extrahepatic bifurcation suggestive of cholangiocarcinoma. Plan: 1. EGD/EUS tomorrow by Dr. Chapa. 2. NPO after midnight. -I have seen, examined, and agree with the plan as outlined from Ms. Srinath Bueno above. -? hilar stricture/mass -EUS/ERCP tomorrow
[2017-02-10] MEDS: CIPROFLOXACIN / D5W 400 MG in PREMIXED IN D5W 200 ML IV SCH ×2 (11:52→23:46)
[2017-02-10 15:08] VITALS: BP 147/85; PULSE 80; TEMP 36.5; O2SAT 96
--- NOTE | 2017-02-10 18:57 | Progress Note ---
Medicine Progress Note Date & Time of Visit: February 10, 2017 at 18:53. Subjective seen resting in bed, comfortable denies abdominal pain, nausea tolerating full liquids denies chest pain, dyspnea, dizziness no fever/chills no other symptoms Objective Last 8 Hrs Date Time Temp Pulse Resp B/P Pulse Ox O2 Delivery O2 Flow Rate FiO2 02/10/17 15:20 Room Air 02/10/17 15:08 36.5 80 18 147/85 96 Room Air Physical Exam: General-oriented x 3, not in distress, speaks in sentences with no effort Eyes- anicteric Neck- no JVD Lungs- clear b/s bilaterally, no rales Heart- regular rhythm; no murmur, normal rate Abdomen- normal bowel sounds, non distended, soft, nontender Extremities- no pretibial edema, no calf tenderness Neuro- alert, oriented x 3; no gross deficits Skin- warm & dry Laboratory Results: Last 24 Hours Test 02/10/17 05:38 White Blood Count 5.52 K/uL Red Blood Count 4.55 M/uL Hemoglobin 14.1 g/dL Hematocrit 40.5 % Mean Corpuscular Volume 89.0 fL Mean Corpuscular Hemoglobin 31.0 pg Mean Corpuscular Hemoglobin Concent 34.8 g/dl Platelet Count 183 K/uL Mean Platelet Volume 9.9 fL Neutrophils (%) (Auto) 77.6 % Lymphocytes (%) (Auto) 11.2 % Monocytes (%) (Auto) 8.3 % Eosinophils (%) (Auto) 2.5 % Basophils (%) (Auto) 0.2 % Neutrophils # (Auto) 4.28 K/uL Lymphocytes # (Auto) 0.62 K/uL Monocytes # (Auto) 0.46 K/uL Eosinophils # (Auto) 0.14 K/uL Basophils # (Auto) 0.01 K/uL RDW Standard Deviation 44.2 fL RDW Coefficient of Variation 13.5 % Immature Granulocyte % (Auto) 0.2 % Immature Granulocyte # (Auto) 0.01 K/uL Sodium Level 141 mmol/L Potassium Level 3.8 mmol/L Chloride Level 107 mmol/L Carbon Dioxide Level 24 mmol/L Anion Gap 10.0 mmol/L Blood Urea Nitrogen 8 mg/dl Creatinine 0.89 mg/dl Est Creatinine Clear Calc Drug Dose 63.7 ml/min Estimated GFR () 96.3 Estimated GFR (Non- 83.1 BUN/Creatinine Ratio 9.4 Random Glucose 106 mg/dl Calcium Level 9.2 mg/dl Total Bilirubin 2.8 mg/dl Direct Bilirubin 1.7 mg/dl Aspartate Amino Transf (AST/SGOT) 148 U/L Alanine Aminotransferase (ALT/SGPT) 115 U/L Alkaline Phosphatase 367 U/L Total Protein 7.1 gm/dl Albumin 3.5 gm/dl Assessment & Plan 77 year old male with history of Hypertension, BPH, Dyslipidemia presenting with epigastric pain x 2 days. CHOLELITHIASIS, POSSIBLE CHOLECYSTITIS R/O CBD MASS, CHOLANGIOCARCINOMA - Possible Common bile duct cancer evidence by mass causing acute cholecystitis. - presents with abdominal pain, elevated LFTs - no signs of sepsis on presentation - MRCP: 1. Mild intrahepatic bile duct dilatation to the level of the extrahepatic bile duct bifurcation. There is severely narrowed/decompressed common bile duct. No filling defects seen within the common bile duct. These findings raise the possibility of an occult obstructing lesion at the bifurcation of the extra hepatic bile ducts. Follow-up ERCP is recommended to exclude the possibility of a cholangiocarcinoma. 2. Periportal edema with trace perihepatic ascites. This could be due to underlying hepatic pathology such as a hepatitis. 3. Mildly distended gallbladder containing a few small stones and mild gallbladder wall thickening. This raises the possibility of acute cholecystitis. In addition, a hepatitis could also result in diffuse gallbladder wall thickening. Clinical correlation recommended. - on Cipro + Metro IV day 3 Morphine IV PRN - consulted Dr. Iyer and Dr. Chapa - plan for ERCP/EUS tomorrow on full liquids continue Cipro and Metro IV Day 3, IV fluids EPISODES OF HYPERTENSION no known history of HTN asymptomatic PRN Clonidine ABDOMINAL AORTIC ANEURYSM - 3.5cm - already on aspirin, statin - needs close ff up as outpatient RIGHT RENAL STONE - no obstruction - renal function stable DVT prophylaxis - SCDs for now in anticipation of procedures Code Status - full code per patient Disposition anticipate d/c to home when medically stable Current Inpatient Medications: Current Inpatient Medications Medications (Trade) Dose Ordered Sig/Natalie Route Start Time Stop Time Status Last Admin Dose Admin Ioversol 125 ml 125 ml UD PRN IV 02/08/17 05:15 02/12/17 05:14 Potassium Chloride/Sodium Chloride 1,000 ml @ 60 mls/hr [id number] IV 4/29/17 11:00 03/10/17 10:59 02/10/17 10:36 60 MLS/HR Ciprofloxacin/ Dextrose 400 mg/ Prmx 200 ml @ 100 mls/hr Q12@0000,1200 IV 02/08/17 12:00 02/18/17 11:59 02/10/17 11:52 100 MLS/HR Metronidazole/Prmx (Flagyl / Nss/ Premixed Nss) 100 ml @ 100 mls/hr Q8@0000,0800,1600 IV 02/08/17 16:00 02/18/17 07:59 02/10/17 15:45 100 MLS/HR Acetaminophen (Tylenol Tab) 650 mg Q4H PRN PO 02/08/17 08:15 03/10/17 08:14 Ondansetron HCl (Zofran Inj) 4 mg Q6H PRN IV 02/08/17 08:15 03/10/17 08:14 Atorvastatin Calcium (Lipitor Tab) 10 mg DAILY PO 02/08/17 12:00 03/10/17 11:59 02/10/17 08:48 10 MG Tamsulosin HCl (Flomax Cap) 0.4 mg DAILY PO 02/08/17 12:00 03/10/17 11:59 02/10/17 08:48 0.4 MG Morphine Sulfate (MoRPHine SULFATE INJ) 3 mg Q4H PRN IV 02/08/17 08:15 02/22/17 08:14 02/08/17 10:47 3 MG
[2017-02-10] MEDS ORDERED: CLONIDINE HCL 0.1 MG TAB PO PRN (19:00)
[2017-02-10 23:01] VITALS: BP 157/93; PULSE 77; TEMP 36.9; O2SAT 95
[2017-02-11] VITALS (9 sets, daily range): BP systolic 117–180; BP diastolic 64–104; PULSE 70–94; TEMP 36.4–36.9; O2SAT 93–97
[2017-02-11] MEDS: NSS + 20MEQ KCL 1000ML 1,000 ML IV SCH (04:18)
[2017-02-11 06:09] LABS: BASO % 0.3 %; BASO ABS # 0.02 K/uL (0-0.2); COMPLETE YES; EOS % 2.4 %; HEMATOCRIT 42.1 % (42-52); IG% 0.1 %; LYMPH % 11.3 %; LYMPH ABS # 0.76 K/uL (1.2-3.4); MEAN CELL VOLUME 87.3 fL (80-100); MEAN CORPUSCULAR HEMOGLOBIN 30.9 pg (25-34); MEAN CORPUSCULAR HGB CONC 35.4 g/dl (32-36); MEAN PLATELET VOLUME 9.6 fL (7.4-10.4); MONO % 8.2 %; NEUT % 77.7 %; PLATELET COUNT 225 K/uL (130-400); RED BLOOD COUNT 4.82 M/uL (4.7-6.1); WHITE BLOOD COUNT 6.74 K/uL (4.8-10.8)
[2017-02-11 06:36] LABS: BUN/CREATININE RATIO 10.2 (10-20); CALCIUM 9.3 mg/dl (8.5-10.1); CREATININE 0.89 mg/dl (0.60-1.40); POTASSIUM 3.8 mmol/L (3.5-5.1)
[2017-02-11] MEDS: TAMSULOSIN HCL 0.4 MG CAP PO SCH (07:41)
[2017-02-11] MEDS: ATORVASTATIN 10 MG TAB PO SCH (07:41)
[2017-02-11] MEDS: METRONIDAZOLE / NSS 500 MG in PREMIXED NSS 100 ML IV SCH ×3 (07:42→23:25)
--- NOTE | 2017-02-11 09:53 | Gastroenterology Progress Note ---
Progress Note Date of Service: February 11, 2017 Subjective Pt evaluation today including: conversation w/ patient This note serves as an interim pre-procedure for EUS/ERCP in the OR at 12:30 today. Mr. Nielsen is a 77 male with jaundice (improving) who presented with abdominal pain which has subsided. CT with biliary ductal dilation to the level of the bifurcation. Review of Systems Constitutional: No fever Respiratory: No cough Abdomen: + jaundice (resolving), + pain (not since Friday evening/night), No GI bleeding, No acolic stools, No constipation, No diarrhea, No dysphagia, No nausea, No odynophagia, No vomiting Male : No dysuria Neuro: No memory loss Psych: No depression symptoms Heme: No abnormal bleeding/bruising Endo: No fatigue Medications Current Inpatient Medications Medications (Trade) Dose Ordered Sig/Natalie Route Start Time Stop Time Status Last Admin Dose Admin Ioversol 125 ml 125 ml UD PRN IV 02/08/17 05:15 02/12/17 05:14 Potassium Chloride/Sodium Chloride 1,000 ml @ 60 mls/hr [id number] IV 02/08/17 11:00 03/10/17 10:59 02/11/17 04:18 60 MLS/HR Ciprofloxacin/ Dextrose 400 mg/ Prmx 200 ml @ 100 mls/hr Q12@0000,1200 IV 02/08/17 12:00 02/18/17 11:59 02/10/17 23:46 100 MLS/HR Metronidazole/Prmx (Flagyl / Nss/ Premixed Nss) 100 ml @ 100 mls/hr Q8@0000,0800,1600 IV 02/08/17 16:00 02/18/17 07:59 02/11/17 07:42 100 MLS/HR Acetaminophen (Tylenol Tab) 650 mg Q4H PRN PO 02/08/17 08:15 03/10/17 08:14 Ondansetron HCl (Zofran Inj) 4 mg Q6H PRN IV 02/08/17 08:15 03/10/17 08:14 Atorvastatin Calcium (Lipitor Tab) 10 mg DAILY PO 02/08/17 12:00 03/10/17 11:59 02/11/17 07:41 10 MG Tamsulosin HCl (Flomax Cap) 0.4 mg DAILY PO 02/08/17 12:00 03/10/17 11:59 02/11/17 07:41 0.4 MG Morphine Sulfate (MoRPHine SULFATE INJ) 3 mg Q4H PRN IV 02/08/17 08:15 02/22/17 08:14 02/08/17 10:47 3 MG Clonidine HCl (Catapres Tab) 0.1 mg Q6H PRN PO 02/10/17 19:00 03/12/17 18:59 02/11/17 07:41 0.1 MG Objective Vital Signs Date Time Temp Pulse Resp B/P Pulse Ox O2 Delivery O2 Flow Rate FiO2 02/11/17 09:25 113 16 142/102 100 Mechanical Ventilator 02/11/17 09:15 130 16 138/103 100 Mechanical Ventilator 02/11/17 09:11 36.5 132 16 139/103 100 Mechanical Ventilator 02/11/17 08:49 158/91 02/11/17 08:11 Room Air 02/11/17 06:51 36.9 94 18 180/104 95 Room Air 02/11/17 05:26 02/10/17 23:46 Room Air 02/10/17 23:01 36.9 77 18 157/93 95 Room Air 02/10/17 15:20 Room Air 02/10/17 15:08 36.5 80 18 147/85 96 Room Air Physical Exam General Appearance: no apparent distress Neck: no JVD Respiratory/Chest: lungs clear Cardiovascular: regular rate, rhythm, no murmur Abdomen: non tender, soft Extremities: non-tender Neurologic/Psych: alert, normal mood/affect, oriented x 3 Skin: no jaundice, warm/dry Laboratory Results Last 24 Hours Test 02/11/17 05:51 White Blood Count 6.74 K/uL Red Blood Count 4.82 M/uL Hemoglobin 14.9 g/dL Hematocrit 42.1 % Mean Corpuscular Volume 87.3 fL Mean Corpuscular Hemoglobin 30.9 pg Mean Corpuscular Hemoglobin Concent 35.4 g/dl Platelet Count 225 K/uL Mean Platelet Volume 9.6 fL Neutrophils (%) (Auto) 77.7 % Lymphocytes (%) (Auto) 11.3 % Monocytes (%) (Auto) 8.2 % Eosinophils (%) (Auto) 2.4 % Basophils (%) (Auto) 0.3 % Neutrophils # (Auto) 5.24 K/uL Lymphocytes # (Auto) 0.76 K/uL Monocytes # (Auto) 0.55 K/uL Eosinophils # (Auto) 0.16 K/uL Basophils # (Auto) 0.02 K/uL RDW Standard Deviation 42.4 fL RDW Coefficient of Variation 13.2 % Immature Granulocyte % (Auto) 0.1 % Immature Granulocyte # (Auto) 0.01 K/uL Sodium Level 140 mmol/L Potassium Level 3.8 mmol/L Chloride Level 106 mmol/L Carbon Dioxide Level 24 mmol/L Anion Gap 10.0 mmol/L Blood Urea Nitrogen 9 mg/dl Creatinine 0.89 mg/dl Est Creatinine Clear Calc Drug Dose 63.7 ml/min Estimated GFR () 96.3 Estimated GFR (Non- 83.1 BUN/Creatinine Ratio 10.2 Random Glucose 105 mg/dl Calcium Level 9.3 mg/dl Total Bilirubin 1.8 mg/dl Direct Bilirubin 1.0 mg/dl Aspartate Amino Transf (AST/SGOT) 147 U/L Alanine Aminotransferase (ALT/SGPT) 120 U/L Alkaline Phosphatase 358 U/L Total Protein 7.4 gm/dl Albumin 3.5 gm/dl Assessment and Plan Mr. Nielsen is a 77 yr old male with abdominal pain, jaundice, imaging suggestive of bile duct dilation to the level of the extrahepatic bifurcation suggestive of cholangiocarcinoma. Plan: EGD/EUS today by Dr. Chapa. I saw and evaluated the patient. EUS/ ERCP requested for evalaution of a suspicious MRCP (suspected cholangiocarcinoma). I have discussed the risks to include bleeding, infection, perforation, pain, pancreatitis, failed cannulation , and insufficient celluarity.
[2017-02-11] MEDS: INDOMETHACIN 50 MG SUPP PR SCH ×2 (10:00→15:11)
[2017-02-11] MEDS: CIPROFLOXACIN / D5W 400 MG in PREMIXED IN D5W 200 ML IV SCH (11:55)
--- NOTE | 2017-02-11 12:20 | SURGERY PROGRESS NOTE ---
DATE: 02/11/2017 SUBJECTIVE: Behzad is doing better. He said that his urine is clearing up. He is having less pain. OBJECTIVE: Last vitals showed a temperature of 36.4, pulse 84, respirations 20, blood pressure 117/76, O2 sats 94 on room air. I\T\O noted. He was seen by autocad draftsman on 02/09/2017 for an ERCP, hopefully that will be done today. We will await those results and further recommendations will be made obviously based on those results. Of note, his last liver enzymes showed bilirubin to be decreasing, but still significant elevation of the alkaline phosphatase. MTDD
[2017-02-11] MEDS ORDERED: ONDANSETRON INJ 2 MG/ML 2 ML VIAL ONE (13:38)
[2017-02-11] MEDS ORDERED: FENTANYL CITRATE INJ 50 MCG/1 ML 2 ML VIAL ONE (13:38)
[2017-02-11] MEDS ORDERED: LIDOCAINE HCL 2% 2 ML VIAL (20MG/ML) ONE (13:38)
[2017-02-11] MEDS ORDERED: DEXAMETHASONE SOD INJ 4 MG/ML VIAL ONE (13:38)
[2017-02-11] MEDS ORDERED: PROPOFOL IV EMULSION 10 MG/ML 20 ML VIAL IV ONE (13:38)
[2017-02-11] MEDS ORDERED: LACTATED RINGER'S 1000ML 1,000 ML IV PRN (13:57)
[2017-02-11] MEDS ORDERED: ONDANSETRON INJ 2 MG/ML 2 ML VIAL IV PRN (14:00)
[2017-02-11] MEDS ORDERED: FENTANYL CITRATE INJ 50 MCG/1 ML 2 ML VIAL IV PRN (14:00)
--- NOTE | 2017-02-11 14:00 | History & Physical Bridge Note ---
H&P Re-Evaluation Bridge Note: I have examined the patient, reviewed the History & Physical and in the interval since the performance of the History & Physical I have noted the following changes of clinical significance: No changes noted. We have discussed the risks of ERCP and EUS to include bleeding, infection, perforation , pain, infection, pancreatitis, failed cannulation, and insufficient cellularity.
[2017-02-11] MEDS ORDERED: INDOMETHACIN 50 MG SUPP PR ONE (14:15)
--- NOTE | 2017-02-11 15:43 | GI REPORT ---
Procedure Date: 02/11/2017 2:58 PM Procedure: ERCP Indications: Abnormal MRCP Medicines: General Anesthesia Complications: No immediate complications. Estimated blood loss: Minimal. Estimated Blood Loss: Estimated blood loss was minimal. Procedure: Pre-Anesthesia Assessment: - Prior to the procedure, a History and Physical was performed, and patient medications, allergies and sensitivities were reviewed. The patient's tolerance of previous anesthesia was reviewed. - The risks and benefits of the procedure and the sedation options and risks were discussed with the patient. All questions were answered and informed consent was obtained. - Patient identification and proposed procedure were verified prior to the procedure by the physician, the nurse and the wire threader. The procedure was verified in the procedure room. - Pre-procedure physical examination revealed no contraindications to sedation. - ASA Grade Assessment: III - A patient with severe systemic disease. - After reviewing the risks and benefits, the patient was deemed in satisfactory condition to undergo the procedure. - The anesthesia plan was to use general anesthesia. - Immediately prior to administration of medications, the patient was re-assessed for adequacy to receive sedatives. - The heart rate, respiratory rate, oxygen saturations, blood pressure, adequacy of pulmonary ventilation, and response to care were monitored throughout the procedure. - The physical status of the patient was re-assessed after the procedure. After obtaining informed consent, the scope was passed under direct vision. Throughout the procedure, the patient's blood pressure, pulse, and oxygen saturations were monitored continuously. The Scope was introduced through the mouth, and advanced to the duodenum and used to inject contrast into the bile duct. The ERCP was accomplished without difficulty. The patient tolerated the procedure well. Findings: The total fluoroscopy exposure time was 1 minute and 21 seconds. The recreation teacher film was normal. The esophagus was successfully intubated under direct vision without detailed examination of the pharynx, larynx, and associated structures, and upper GI tract. The upper GI tract was grossly normal. The major papilla was normal. The bile duct could not be cannulated with the short-nosed traction sphincterotome and 0.035 in Acrobat guidewire. The bile duct was deeply then cannulated with the short-nosed traction sphincterotome (omni 35) and 0.025 in Acrobat guidewire. A small amount of contrast was injected. I personally interpreted the bile duct images. Contrast extended to the hepatic ducts. The biliary orifice was stenotic. This appeared benign. The main bile duct and left and right hepatic ducts and all intrahepatic branches contained a diffuse irregularity with a prunnig like pattern in the intraheptic ducts consistent with PSC. No dominant stricture or hilar mass was noted (as suggest by MRCP). A biliary sphincterotomy was made with a monofilament short-tip traction sphincterotome using ERBE electrocautery. There was no post-sphincterotomy bleeding. The lower third of the main bile duct was successfully dilated with a 4 mm balloon dilator. Dilation of the entire main bile duct with 7 Fr catheter dilator was successful (some resistence was noted). After the dilation the biliary tree appeared to be draining bile well, no stent was placed. The endoscope was withdrawn from the patient. Impression: - The major papilla appeared normal. - Biliary papillary stenosis, benign. 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 - A sphincterotomy was performed. - The lower third of the main bile duct was successfully dilated to 7 Fr Recommendation: - Avoid aspirin and nonsteroidal anti-inflammatory medicines for 1 week. - Clear liquid diet today. - Use broad spectrum antibiotics for 2 weeks. - Observe patient's clinical course following today's ERCP with therapeutic intervention. - Perform magnetic resonance imaging (MRI) with gadolinium. Morales Chapa D.O. Morales Chapa, 02/11/2017 3:43:11 PM This report has been signed electronically. Note Initiated On: 02/11/2017 2:58 PM I attest to the content of the Intraoperative Record and orders documented therein, exceptions below
[2017-02-11] MEDS ORDERED: PHENYLEPHRINE 100MCG/ML 5ML SYR ONE (15:48)
[2017-02-11] MEDS ORDERED: SUCCINYLCHOLINE CHLORIDE 20 MG/ML 10 ML VIAL IV ONE (15:48)
--- NOTE | 2017-02-11 15:56 | GI REPORT ---
Procedure Date: 02/11/2017 2:21 PM Procedure: Upper EUS Indications: CBD stricture on MRCP, Suspected mass on MRCP Medicines: General Anesthesia Complications: No immediate complications. Estimated blood loss: Minimal. Estimated Blood Loss: Estimated blood loss was minimal. Procedure: Pre-Anesthesia Assessment: - Prior to the procedure, a History and Physical was performed, and patient medications, allergies and sensitivities were reviewed. The patient's tolerance of previous anesthesia was reviewed. - The risks and benefits of the procedure and the sedation options and risks were discussed with the patient. All questions were answered and informed consent was obtained. - Patient identification and proposed procedure were verified prior to the procedure by the physician, the nurse and the tassel clipper. The procedure was verified in the procedure room. - Pre-procedure physical examination revealed no contraindications to sedation. - ASA Grade Assessment: III - A patient with severe systemic disease. - After reviewing the risks and benefits, the patient was deemed in satisfactory condition to undergo the procedure. - The anesthesia plan was to use general anesthesia. - Immediately prior to administration of medications, the patient was re-assessed for adequacy to receive sedatives. - The heart rate, respiratory rate, oxygen saturations, blood pressure, adequacy of pulmonary ventilation, and response to care were monitored throughout the procedure. - The physical status of the patient was re-assessed after the procedure. After obtaining informed consent, the endoscope was passed under direct vision. Throughout the procedure, the patient's blood pressure, pulse, and oxygen saturations were monitored continuously. The Endosonoscope was introduced through the mouth, and advanced to the second part of duodenum. The upper EUS was accomplished without difficulty. The patient tolerated the procedure well. The Endosonoscope was introduced through the mouth, and advanced to the second part of duodenum. The EGD Scope was introduced through the mouth, and advanced to the second part of duodenum. Findings: Endoscopic Finding : LA Grade C (one or more mucosal breaks continuous between tops of 2 or more mucosal folds, less than 75% circumference) esophagitis with bleeding was found in the middle third of the esophagus. The entire examined stomach was normal. Multiple diffuse erosions without bleeding were found in the duodenal bulb and in the second part of the duodenum. Endosonographic Finding : There was no sign of significant endosonographic abnormality in the common bile duct. No stones, no biliary sludge and ducts of normal caliber were identified. The CBD was 3 to 4 mm without an obvious mass seen in the extrahepatic or pancreatic portions. Many stones were visualized endosonographically in the gallbladder. The stones were round. They were hyperechoic and characterized by shadowing. There was no sign of significant endosonographic abnormality in the entire pancreas. No masses, the pancreatic duct was thin in caliber. No lymphadenopathy seen. Impression: - LA Grade C reflux esophagitis. - Normal stomach. - Erosive duodenopathy with without bleeding. - There was no sign of significant pathology in the common bile duct. - Many stones were visualized endosonographically in the gallbladder. - There was no sign of significant pathology in the entire pancreas. Recommendation: - Perform an ERCP today due to question of a hilar mass on MRCP - Use Prilosec (omeprazole) 40 mg PO BID Morales Chapa D.O. Morales Chapa DO 02/11/2017 3:55:36 PM This report has been signed electronically. Note Initiated On: 02/11/2017 2:21 PM I attest to the content of the Intraoperative Record and orders documented therein, exceptions below
--- NOTE | 2017-02-11 16:07 | DIAGNOSTIC IMAGING REPORT ---
INTRAOPERATIVE RADIOGRAPHS CLINICAL HISTORY: ERCP. Fluoroscopy time: 84 seconds. FINDINGS: 9 spot fluoroscopic images of the right upper quadrant from an ERCP procedure were acquired and correlated with MRCP dated 02/08/2017. There is cannulation of the common bile duct. The common bile duct appears decompressed. There is mild dilatation of the central intrahepatic ducts. Focal narrowing is suggested at the level of the common hepatic duct. There is irregularity with a somewhat beaded appearance suggested involving the intrahepatic bile ducts. IMPRESSION: 1. There is mild dilatation of the central intrahepatic bile ducts. Focal narrowing is suggested at the level of the common hepatic duct. Obstructing lesion is not excluded. Correlation with ERCP findings will be required. 2. The intrahepatic ducts demonstrate a somewhat beaded appearance. This is nonspecific and could be seen in the setting of cholangitis. Again, correlation with ERCP findings will be required. 3. There are no clear filling defects identified to confirm choledocholithiasis. Electronically signed by: Elmo Sherwood M.D. 02/11/2017 4:05 PM Dictated Date/Time: 02/11/2017 3:57 PM
--- NOTE | 2017-02-11 16:11 | [facility] Post Operative Brief Note ---
Immediate Operative Summary Operative Date February 11, 2017. Pre-Operative Diagnosis Biliary obstruction. Post-Operative Diagnosis Erosive esophagitis Primary sclerosing cholangitis Procedure(s) Performed Endoscopic Retrograde Cholangiopancreatography with bile duct dilation and sphincterotomy; Upper Endoscopic Ultrasonography Surgeon Dr. Chapa Boat Designer Surgeon(s) None Estimated Blood Loss 0 ml Findings DIffiuse irregularity of the CBD and intrahepatics with diffuse prunning consistent with PSC Erosive esophagitis Specimens None Anesthesia General Complication(s) None Disposition Recovery Room / PACU
--- NOTE | 2017-02-11 16:14 | Progress Note ---
Progress Note Date of Service February 11, 2017. Progress Note EUS results: no biliary mass seen Severe erosive esophagitis ERCP: diffuse irregularity of the CBD and intrahepatics (prunning and small sacculations) consistent with PSC Recomendation: Hepatic MRI with gadolinum Continue antibiotic coverage for a total of 2 weeks Protonix 40 mg bid for 6 weeks Clinic follow-up in 6 t 8 weeks May have clears today
--- NOTE | 2017-02-11 16:42 | Anesthesiology Progress Note ---
Anesthesia Post Op Note Date & Time February 11, 2017 at 16:43 Vital Signs Pain Intensity: 0 Vital Signs Past 12 Hours Date Time Temp Pulse Resp B/P Pulse Ox O2 Delivery O2 Flow Rate FiO2 02/11/17 16:29 68 16 151/79 99 Nasal Cannula 4 02/11/17 16:20 36.5 67 16 149/73 99 Nasal Cannula 4 02/11/17 16:10 71 16 141/60 99 Nasal Cannula 4 02/11/17 16:00 73 16 129/72 99 Mask 5 02/11/17 15:50 70 16 139/71 99 Mask 10 02/11/17 15:46 37.1 68 16 132/73 99 Mask 10 02/11/17 13:07 36.4 84 20 117/76 94 Room Air 02/11/17 11:27 36.4 84 20 117/76 94 Room Air 02/11/17 08:49 158/91 02/11/17 08:11 Room Air 02/11/17 06:51 36.9 94 18 180/104 95 Room Air 02/11/17 05:26 Notes Mental Status: alert / awake / arousable, participated in evaluation Pt Amnestic to Procedure: Yes Nausea / Vomiting: adequately controlled Pain: adequately controlled Airway Patency, RR, SpO2: stable & adequate BP & HR: stable & adequate Hydration State: stable & adequate Anesthetic Complications: no major complications apparent
--- NOTE | 2017-02-11 19:57 | Progress Note ---
Internal Med Progress Note Date of Service: February 11, 2017. Provider Documentation: SUBJECTIVE: had EGD with EUS earlier today no complain of abdominal pain or nausea on clears tolerating well OBJECTIVE: Vital Signs-as noted below Exam: General-no sign of distress Lungs-CTA Heart-regular S1/S2 Abdomen-soft non tender Extremities-no lower ext edema Neuro-AAO x3, no focal deficit Lab data as noted below. ASSESSMENT & PLAN: 77 year old male with history of Hypertension, BPH, Dyslipidemia presented with epigastric pain x 2 days. CHOLELITHIASIS, POSSIBLE CHOLECYSTITIS R/O CBD MASS, CHOLANGIOCARCINOMA - presents with abdominal pain, elevated LFTs - no signs of sepsis on presentation - MRCP: 1. Mild intrahepatic bile duct dilatation to the level of the extrahepatic bile duct bifurcation. There is severely narrowed/decompressed common bile duct. No filling defects seen within the common bile duct. These findings raise the possibility of an occult obstructing lesion at the bifurcation of the extra hepatic bile ducts. Follow-up ERCP is recommended to exclude the possibility of a cholangiocarcinoma. 2. Periportal edema with trace perihepatic ascites. This could be due to underlying hepatic pathology such as a hepatitis. 3. Mildly distended gallbladder containing a few small stones and mild gallbladder wall thickening. This raises the possibility of acute cholecystitis. In addition, a hepatitis could also result in diffuse gallbladder wall thickening. Clinical correlation recommended. - started on Cipro + Metro IV day 4 Morphine IV PRN for pain - consulted surgery Dr. Iyer and GI Dr. Chapa - S/P ERCP/EUS today by Dr Chapa EUS results: no biliary mass seen Severe erosive esophagitis ERCP: diffuse irregularity of the CBD and intrahepatics (punning and small sacculations) consistent with PSC ( primary sclerosing cholangitis ) GI recommend : Hepatic MRI with gadolinium Continue antibiotic coverage for a total of 2 weeks Protonix 40 mg bid for 6 weeks GI Clinic follow-up in 6 to 8 weeks ordered for clear liquid diet - EPISODES OF HYPERTENSION no known history of HTN asymptomatic PRN Clonidine ABDOMINAL AORTIC ANEURYSM - 3.5cm - already on aspirin, statin - surveillance CT abdomen every year for follow up RIGHT RENAL STONE - no obstruction - renal function stable DVT prophylaxis - SCDs /TEds ambulate pharmacological anticoagulation avoided due to GI procedure Code Status - full code Disposition anticipate d/c to home when medically stable Medicine follow up at [facility] will need to have close follow up with [facility] Vital Signs: Date Time Temp Pulse Resp B/P Pulse Ox O2 Delivery O2 Flow Rate FiO2 02/12/17 07:50 Room Air 02/12/17 07:23 36.5 80 18 142/79 92 Room Air 02/12/17 03:44 36.7 73 16 147/71 91 Room Air 02/11/17 23:34 36.6 81 16 149/80 93 Room Air 02/11/17 19:40 Room Air 02/11/17 19:39 36.6 78 17 158/83 95 Room Air 02/11/17 18:41 36.4 82 17 148/64 94 Room Air 02/11/17 17:45 36.6 85 17 132/76 97 Nasal Cannula 4.0 02/11/17 17:11 70 18 161/90 95 4.0 02/11/17 16:45 Nasal Cannula 4.0 02/11/17 16:45 Nasal Cannula 4.0 02/11/17 16:29 68 16 151/79 99 Nasal Cannula 4 02/11/17 16:20 36.5 67 16 149/73 99 Nasal Cannula 4 02/11/17 16:10 71 16 141/60 99 Nasal Cannula 4 02/11/17 16:00 73 16 129/72 99 Mask 5 02/11/17 15:50 70 16 139/71 99 Mask 10 02/11/17 15:46 37.1 68 16 132/73 99 Mask 10 Lab Results: Results Past 24 Hours Test 02/12/17 05:50 Range/Units Sodium Level 142 136-145 mmol/L Potassium Level 3.6 3.5-5.1 mmol/L Chloride Level 110 98-107 mmol/L Carbon Dioxide Level 23 21-32 mmol/L Anion Gap 9.0 3-11 mmol/L Blood Urea Nitrogen 12 7-18 mg/dl Creatinine 0.97 0.60-1.40 mg/dl Est Creatinine Clear Calc Drug Dose 58.4 ml/min Estimated GFR () 87.5 Estimated GFR (Non- 75.5 BUN/Creatinine Ratio 12.2 10-20 Random Glucose 114 70-99 mg/dl Calcium Level 9.2 8.5-10.1 mg/dl Total Bilirubin 2.8 0.2-1 mg/dl Direct Bilirubin 1.8 0-0.2 mg/dl Aspartate Amino Transf (AST/SGOT) 242 15-37 U/L Alanine Aminotransferase (ALT/SGPT) 133 12-78 U/L Alkaline Phosphatase 458 45-117 U/L Total Protein 6.5 6.4-8.2 gm/dl Albumin 3.2 3.4-5.0 gm/dl
[2017-02-11] MEDS: PANTOprazole INJ 40 MG in SYRINGE 0 ML IV SCH (21:22)
[2017-02-11] MEDS ORDERED: GADOXETATE DISODIUM (NON-WT BASED PROCEDURE) IV PRN (23:00)
[2017-02-12] MEDS: CIPROFLOXACIN / D5W 400 MG in PREMIXED IN D5W 200 ML IV SCH ×2 (00:46→12:23)
[2017-02-12 03:44] VITALS: BP 147/71; PULSE 73; TEMP 36.7; O2SAT 91
--- NOTE | 2017-02-12 07:01 | DIAGNOSTIC IMAGING REPORT ---
MRI OF THE ABDOMEN COMBO CLINICAL HISTORY: Biliary ductal obstruction. COMPARISON STUDY: 02/08/2017. TECHNIQUE: MRI of the abdomen is performed transverse T1 and T2-weighted sequences in the axial and coronal planes. Contrast enhanced sequences were acquired following the IV administration of . FINDINGS: Lower chest: No pleural effusion is identified. The heart is normal in size. Liver: Liver remains uniform. Moderate biliary ductal prominence persists. Gallbladder: Gallbladder slightly distended with a small amount of sludge and/or gravel within the dependent aspect of the gallbladder lumen. Wall edema appears improved. Pancreas: Pancreas appears uniform. There is no dilatation of the pancreatic duct. Kidneys: There are several small renal cysts which have been described previously. No evidence for hydronephrosis. IMPRESSION: Mildly improved exam. No significant gallbladder wall edema on the current study. Persistent intrahepatic biliary ductal prominence. Persistent gravel versus small amount of sludge within the deep dependent aspect of the gallbladder. Several small unchanged renal cysts. Electronically signed by: Isaac Milan M.D. 02/12/2017 6:59 AM Dictated Date/Time: 02/12/2017 6:53 AM
--- NOTE | 2017-02-12 07:09 | SURGERY PROGRESS NOTE ---
DATE: 02/12/2017 Kenji had an ERCP yesterday. From the report, it seems like that he has what appears to be a picture of sclerosing cholangitis. His liver function tests were decreasing yesterday. He still has some right upper quadrant tenderness and fullness. At this point I will discuss with GI, but I think we should proceed with taking out his gallbladder. We will plan to do it tomorrow unless GI sees otherwise depending on what they really saw intraoperatively whether EUS would show anything other than the images that show sclerosing cholangitis.
[2017-02-12 07:13] LABS: BUN/CREATININE RATIO 12.2 (10-20); CALCIUM 9.2 mg/dl (8.5-10.1); CREATININE 0.97 mg/dl (0.60-1.40); POTASSIUM 3.6 mmol/L (3.5-5.1)
[2017-02-12 07:23] VITALS: BP 142/79; PULSE 80; TEMP 36.5; O2SAT 92
[2017-02-12] MEDS: TAMSULOSIN HCL 0.4 MG CAP PO SCH (08:49)
[2017-02-12] MEDS: METRONIDAZOLE / NSS 500 MG in PREMIXED NSS 100 ML IV SCH ×2 (08:49→17:24)
[2017-02-12] MEDS: PANTOprazole INJ 40 MG in SYRINGE 0 ML IV SCH ×2 (08:56→21:51)
[2017-02-12] MEDS: ATORVASTATIN 10 MG TAB PO SCH (09:56)
--- NOTE | 2017-02-12 10:49 | Gastroenterology Progress Note ---
Progress Note Date of Service: February 12, 2017 Subjective Pt evaluation today including: conversation w/ patient, physical exam, chart review, lab review, review of studies, review of inpatient medication list Mr. Nielsen is a 77 yr old male admitted on 02/09 with jaundice, abdominal pain . ERCP yesterday by Dr. 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 Today, he feels well, is tolerating regular food and requests DC. LFTs continue to improve. MRI of the liver with less bile duct dilation, no mention of PSC. Review of Systems Constitutional: No fever ENT: No hearing loss Respiratory: No cough Cardiac: No chest pain Abdomen: No GI bleeding, No constipation, No diarrhea, No nausea, No pain, No vomiting Male : No dysuria Neuro: No memory loss Psych: No depression symptoms Endo: No fatigue Skin: + jaundice (resolved) Medications Current Inpatient Medications Medications (Trade) Dose Ordered Sig/Natalie Route Start Time Stop Time Status Last Admin Dose Admin Ciprofloxacin/ Dextrose 400 mg/ Prmx 200 ml @ 100 mls/hr Q12@0000,1200 IV 02/08/17 12:00 02/18/17 11:59 02/12/17 00:46 100 MLS/HR Metronidazole/Prmx (Flagyl / Nss/ Premixed Nss) 100 ml @ 100 mls/hr Q8@0000,0800,1600 IV 02/08/17 16:00 02/18/17 07:59 02/12/17 08:49 100 MLS/HR Acetaminophen (Tylenol Tab) 650 mg Q4H PRN PO 02/08/17 08:15 03/10/17 08:14 Ondansetron HCl (Zofran Inj) 4 mg Q6H PRN IV 02/08/17 08:15 03/10/17 08:14 Atorvastatin Calcium (Lipitor Tab) 10 mg DAILY PO 02/08/17 12:00 03/10/17 11:59 02/12/17 09:56 10 MG Tamsulosin HCl (Flomax Cap) 0.4 mg DAILY PO 02/08/17 12:00 03/10/17 11:59 02/12/17 08:49 0.4 MG Morphine Sulfate (MoRPHine SULFATE INJ) 3 mg Q4H PRN IV 02/08/17 08:15 02/22/17 08:14 02/08/17 10:47 3 MG Clonidine HCl 0.1 mg 0.1 mg Q6H PRN PO 02/10/17 19:00 03/12/17 18:59 02/11/17 07:41 0.1 MG Pantoprazole Sodium/Syringe (Protonix Inj/ Syringe) 10 ml @ 5 mls/min BID@0900,2100 IV 02/11/17 21:00 03/13/17 20:59 02/12/17 08:56 5 MLS/MIN Gadoxetate Disodium (Eovist (Non-Wt Based Procedure)) 10 ml UD PRN IV 02/11/17 23:00 02/15/17 22:59 Objective Vital Signs Date Time Temp Pulse Resp B/P Pulse Ox O2 Delivery O2 Flow Rate FiO2 02/12/17 07:50 Room Air 02/12/17 07:23 36.5 80 18 142/79 92 Room Air 02/12/17 03:44 36.7 73 16 147/71 91 Room Air 02/11/17 23:34 36.6 81 16 149/80 93 Room Air 02/11/17 19:40 Room Air 02/11/17 19:39 36.6 78 17 158/83 95 Room Air 02/11/17 18:41 36.4 82 17 148/64 94 Room Air 02/11/17 17:45 36.6 85 17 132/76 97 Nasal Cannula 4.0 02/11/17 17:11 70 18 161/90 95 4.0 02/11/17 16:45 Nasal Cannula 4.0 02/11/17 16:45 Nasal Cannula 4.0 02/11/17 16:29 68 16 151/79 99 Nasal Cannula 4 02/11/17 16:20 36.5 67 16 149/73 99 Nasal Cannula 4 02/11/17 16:10 71 16 141/60 99 Nasal Cannula 4 02/11/17 16:00 73 16 129/72 99 Mask 5 02/11/17 15:50 70 16 139/71 99 Mask 10 02/11/17 15:46 37.1 68 16 132/73 99 Mask 10 02/11/17 13:07 36.4 84 20 117/76 94 Room Air 02/11/17 11:27 36.4 84 20 117/76 94 Room Air Physical Exam General Appearance: no apparent distress ENT: pharynx normal Neck: no JVD Respiratory/Chest: lungs clear Cardiovascular: regular rate, rhythm, no JVD, no murmur Abdomen: soft, + tenderness Neurologic/Psych: alert, normal mood/affect, oriented x 3 Skin: normal color, no jaundice Laboratory Results Last 24 Hours Test 02/12/17 05:50 Sodium Level 142 mmol/L Potassium Level 3.6 mmol/L Chloride Level 110 mmol/L Carbon Dioxide Level 23 mmol/L Anion Gap 9.0 mmol/L Blood Urea Nitrogen 12 mg/dl Creatinine 0.97 mg/dl Est Creatinine Clear Calc Drug Dose 58.4 ml/min Estimated GFR () 87.5 Estimated GFR (Non- 75.5 BUN/Creatinine Ratio 12.2 Random Glucose 114 mg/dl Calcium Level 9.2 mg/dl Total Bilirubin 2.8 mg/dl Direct Bilirubin 1.8 mg/dl Aspartate Amino Transf (AST/SGOT) 242 U/L Alanine Aminotransferase (ALT/SGPT) 133 U/L Alkaline Phosphatase 458 U/L Total Protein 6.5 gm/dl Albumin 3.2 gm/dl Assessment and Plan Mr. Nielsen is a 77 yr old male with abdominal pain, jaundice, imaging suggestive of bile duct dilation to the level of the extrahepatic bifurcation suggestive of cholangiocarcinoma, EUS/ERCP more suggestive of PSC. MRI w/o diagnostic findings of either. Plan: 1. OK for DC from a GI perspective. 2. Needs two full weeks of Cipro/Flagyl for coverage of cholangitis. 3. Our office will contact him to arrange OP GI f/u. I have seen , examined and agree with the plan as outlined by GURVINDER Vail as above. -exam reveals soft abd
[2017-02-12] MEDS ORDERED: CPR500 PO (13:22)
[2017-02-12] MEDS ORDERED: METR-163 PO (13:22)
[2017-02-12] MEDS ORDERED: PANT40TA PO (13:22)
--- NOTE | 2017-02-12 13:24 | Discharge Instructions ---
Discharge Instructions Date of Service February 12, 2017. Admission Reason for Admission: Acute Cholecystitis Discharge Discharge Diagnosis / Problem: PRIMARY SCLEROSING CHOLAGITIS/ACUTE CHOLECYSTISTIS Discharge Goals Goal(s): Decrease discomfort, Improve disease control, Diagnostic testing, Therapeutic intervention Activity Recommendations Activity Limitations: as noted below Lifting Limitations: no more than 10 pounds Exercise/Sports Limitations: until after follow-up appointment May Resume Sexual Activity: after follow-up appointment Shower/Bathe: no limitations Driving or Machine Use: resume 3 days after discharge . Instructions / Follow-Up Instructions / Follow-Up SURGERY FOLLOW UP WITH DR SPENCER OFFICE AT [address] [place] [address] Dr HARTFORD Please report to the office on 02/17/2017 to have your drain removed. Please call the office at [phone] to make an appointment. Please call the office at [phone] with any questions or concerns. GASTROENTEROLOGY FOLLOW UP IN 2-3 WEEK , OFFICE WILL CALL WITH APPOINTMENT MEDICINE FOLLOW UP WITH DR JIMENEZ ON 02/19/2017 1:00 PM Agustin Thompson MD Internal Medicine [facility] ABDOMINAL AORTIC ANEURYSM - 3.5cm - surveillance CT abdomen every year for follow up Current Hospital Diet Patient's current hospital diet: LOW FAT Diet Discharge Diet Recommended Diet: Low Fat Diet Procedures Procedures Performed: Endoscopic Retrograde Cholangiopancreatography with bile duct dilation and sphincterotomy; Upper Endoscopic Ultrasonography Pending Studies Studies pending at discharge: yes List of pending studies: LIVER FUNCTION TEST ON 02/19/17 Medical Emergencies . Who to Call and When: Medical Emergencies: If at any time you feel your situation is an emergency, please call 911 immediately. . Non-Emergent Contact Non-Emergency issues call your: Primary Care Provider, Surgeon Call Non-Emergent contact if: you have a fever temperature is above 101.5, your pain is not controlled, your pain is worsening , wound has increased drainage, wound has increased redness . . . "Provider Documentation" section prepared by Julieta Aceves. . VTE Core Measure Inpt VTE Proph given/why not?: [place] [place], [facility] [place] Drug Monitoring Program Search Results: no issues identified
--- NOTE | 2017-02-12 13:38 | Progress Note ---
Internal Med Progress Note Date of Service: February 12, 2017. Provider Documentation: SUBJECTIVE: no complain of nausea or abdominal pain does not like clear liquid diet , wants to go home today if possible was seen by Surgery this AM , scheduled to have cholecystectomy done in AM Pt initially wanted to go home and come back later for elective procedure after counselling by myself and anesthesia that it would be prudent to have cholecystectomy done this Admission pt finally agreed diet advanced to low fat NPO past midnight for possible cholecystectomy tomorrow by Dr Iyer OBJECTIVE: Vital Signs-as noted below Exam: General-no sign of distress . conversing Lungs-CTA Heart-regular S1/S2 Abdomen-soft non tender Extremities-no lower ext edema Neuro-AAO x3, no focal deficit Lab data as noted below. ASSESSMENT & PLAN: 77 year old male with history of Hypertension, BPH, Dyslipidemia presented with epigastric pain x 2 days. 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 Mild intrahepatic bile duct dilatation to the level of the extrahepatic bile duct bifurcation. There is severely narrowed/decompressed common bile duct. No filling defects seen within the common bile duct. These findings raise the possibility of an occult obstructing lesion at the bifurcation of the extra hepatic bile ducts. Follow-up ERCP is recommended to exclude the possibility of a cholangiocarcinoma. 2. Periportal edema with trace perihepatic ascites. This could be due to underlying hepatic pathology such as a hepatitis. 3. Mildly distended gallbladder containing a few small stones and mild gallbladder wall thickening. This raises the possibility of acute cholecystitis. In addition, a hepatitis could also result in diffuse gallbladder wall thickening. Clinical correlation recommended. - started on Cipro + Metro IV day # 5 Morphine IV PRN for pain - consulted surgery Dr. Iyer and GI Dr. Chapa - S/P ERCP/EUS Dr Chapa tolerating clears well advanced diet to low fat , NPO past mid night for surgery /cholecystectomy tomorrow EUS results: no biliary mass seen Severe erosive esophagitis ERCP: diffuse irregularity of the CBD and intrahepatics (punning and small sacculations) consistent with PSC ( primary sclerosing cholangitis ) Hepatic MRI with gadolinium does not show any definitive dx IMPRESSION: Mildly improved exam. No significant gallbladder wall edema on the current study. Persistent intrahepatic biliary ductal prominence. Persistent gravel versus small amount of sludge within the deep dependent aspect of the gallbladder. Several small unchanged renal cysts. Continue antibiotic coverage for a total of 2 weeks-as per GI Protonix 40 mg bid for 6 weeks GI Clinic follow-up in 6 to 8 weeks appreciate Surgery eval , scheduled to have cholecystectomy done tomorrow Pt is low to moderate risk for surgical procedure should proceed with out any further cardiac work up ordered for NPO past midnight surgery team updated ELEVATED TRANSAMINASE : due to above follow LFT's D/c Statin ordered for EITAN , Ig M , P-ANCA level for PSC -reference lab pt can follow up with GI in office for the lab reports ABDOMINAL AORTIC ANEURYSM - 3.5cm - already on aspirin -Statin D/christen for elevated liver function - surveillance CT abdomen every year for follow up RIGHT RENAL STONE - no obstruction - renal function stable DVT prophylaxis - SCDs /TEds ambulate pharmacological anticoagulation avoided due to surgical procedure Code Status - full code Disposition anticipate d/c to home when medically stable Medicine follow up at [facility] will need to have close follow up with [facility] Surgery follow up post op cholecystectomy Vital Signs: Date Time Temp Pulse Resp B/P Pulse Ox O2 Delivery O2 Flow Rate FiO2 02/12/17 07:50 Room Air 02/12/17 07:23 36.5 80 18 142/79 92 Room Air 02/12/17 03:44 36.7 73 16 147/71 91 Room Air 02/11/17 23:34 36.6 81 16 149/80 93 Room Air 02/11/17 19:40 Room Air 02/11/17 19:39 36.6 78 17 158/83 95 Room Air 02/11/17 18:41 36.4 82 17 148/64 94 Room Air 02/11/17 17:45 36.6 85 17 132/76 97 Nasal Cannula 4.0 02/11/17 17:11 70 18 161/90 95 4.0 02/11/17 16:45 Nasal Cannula 4.0 02/11/17 16:45 Nasal Cannula 4.0 02/11/17 16:29 68 16 151/79 99 Nasal Cannula 4 02/11/17 16:20 36.5 67 16 149/73 99 Nasal Cannula 4 02/11/17 16:10 71 16 141/60 99 Nasal Cannula 4 02/11/17 16:00 73 16 129/72 99 Mask 5 02/11/17 15:50 70 16 139/71 99 Mask 10 02/11/17 15:46 37.1 68 16 132/73 99 Mask 10 Lab Results: Results Past 24 Hours Test 02/12/17 05:50 02/12/17 13:41 Range/Units Sodium Level 142 136-145 mmol/L Potassium Level 3.6 3.5-5.1 mmol/L Chloride Level 110 98-107 mmol/L Carbon Dioxide Level 23 21-32 mmol/L Anion Gap 9.0 3-11 mmol/L Blood Urea Nitrogen 12 7-18 mg/dl Creatinine 0.97 0.60-1.40 mg/dl Est Creatinine Clear Calc Drug Dose 58.4 ml/min Estimated GFR () 87.5 Estimated GFR (Non- 75.5 BUN/Creatinine Ratio 12.2 10-20 Random Glucose 114 70-99 mg/dl Calcium Level 9.2 8.5-10.1 mg/dl Total Bilirubin 2.8 0.2-1 mg/dl Direct Bilirubin 1.8 0-0.2 mg/dl Aspartate Amino Transf (AST/SGOT) 242 15-37 U/L Alanine Aminotransferase (ALT/SGPT) 133 12-78 U/L Alkaline Phosphatase 458 45-117 U/L Total Protein 6.5 6.4-8.2 gm/dl Albumin 3.2 3.4-5.0 gm/dl
--- NOTE | 2017-02-12 13:45 | Anesthesiology Progress Note ---
Anesthesia Post Op Note Date & Time February 12, 2017 at 13:45 Vital Signs Pain Intensity: 0.0 Vital Signs Past 12 Hours Date Time Temp Pulse Resp B/P Pulse Ox O2 Delivery O2 Flow Rate FiO2 02/12/17 07:50 Room Air 02/12/17 07:23 36.5 80 18 142/79 92 Room Air 02/12/17 03:44 36.7 73 16 147/71 91 Room Air Notes Mental Status: alert / awake / arousable, participated in evaluation Pt Amnestic to Procedure: Yes Nausea / Vomiting: adequately controlled Pain: adequately controlled Airway Patency, RR, SpO2: stable & adequate BP & HR: stable & adequate Hydration State: stable & adequate Anesthetic Complications: no major complications apparent
--- NOTE | 2017-02-12 13:51 | Progress Note ---
Progress Note Date of Service February 12, 2017. Progress Note 77 year old M who underwent ERCP for cholangitis on Friday. ERCP was concerning for possible PSC. Now presenting for cholecystectomy. Little has changed with the patient since friday. He is afebrile and vitals are stable. PMH is unchanged and includes an asymptomatic small AAA, mild PVD, and mild HTN. His anesthetic and airway management were uncomplicated on Friday. Anticipate GETA on .
[2017-02-12 15:08] VITALS: BP 151/82; PULSE 75; TEMP 36.9; O2SAT 94
[2017-02-13] VITALS (8 sets, daily range): BP systolic 137–178; BP diastolic 77–93; PULSE 75–104; TEMP 36.4–37.3; O2SAT 93–97
[2017-02-13] MEDS: HydrALAZINE HCL 20 MG/ML VIAL IV. PRN ×2 (01:52→14:39)
--- NOTE | 2017-02-13 06:29 | SURGERY PROGRESS NOTE ---
DATE: 02/13/2017 Behzad still has some positive guarding in the right upper quadrant and some minimal rebound tenderness. We will proceed with a laparoscopic cholecystectomy with cholangiogram today. The risks and complications of surgery were explained to the patient with bleeding, infection, converting to an open procedure and he would like to proceed accordingly. Yesterday's liver function tests showed a slight increase that may have been manipulation from the ERCP, but I am concerned that this gentleman small stones in the gallbladder that may pass into cbd which according to ERCP report is quite small I know he has had a sphincterotomy. We will proceed accordingly with [facility] [place] as stated with the acute findings. Risks and complications were explained to him. MARK
[2017-02-13 07:23] LABS: BUN/CREATININE RATIO 15.5 (10-20); CALCIUM 9.1 mg/dl (8.5-10.1); CREATININE 0.95 mg/dl (0.60-1.40); POTASSIUM 3.4 mmol/L (3.5-5.1)
[2017-02-13] MEDS: METRONIDAZOLE / NSS 500 MG in PREMIXED NSS 100 ML IV SCH ×4 (08:53→23:43)
[2017-02-13] MEDS: PANTOprazole INJ 40 MG in SYRINGE 0 ML IV SCH ×2 (08:55→20:30)
[2017-02-13] MEDS: TAMSULOSIN HCL 0.4 MG CAP PO SCH (09:00)
[2017-02-13] MEDS ORDERED: LIDOCAINE/EPINEPHRINE 1% 20 ML VIAL ONE (09:44)
[2017-02-13] MEDS ORDERED: CONRAY 60% 50 ML VIAL ONE (09:44)
[2017-02-13] MEDS ORDERED: ONDANSETRON INJ 2 MG/ML 2 ML VIAL ONE (09:45)
[2017-02-13] MEDS ORDERED: MIDAZOLAM HCL 1 MG/ML 2ML VIAL ONE (09:45)
[2017-02-13] MEDS ORDERED: GLYCOPYRROLATE INJ 0.2 MG/ML VIAL ONE ×2 (09:45→10:55)
[2017-02-13] MEDS ORDERED: DEXAMETHASONE SOD INJ 4 MG/ML VIAL ONE (09:45)
[2017-02-13] MEDS ORDERED: FENTANYL CITRATE INJ 50 MCG/1 ML 2 ML VIAL ONE ×3 (09:45→11:16)
[2017-02-13] MEDS ORDERED: NEOSTIGMINE METHYLSULFATE 5 MG/5 ML SYR ONE (09:45)
[2017-02-13] MEDS ORDERED: ROCURONIUM BROMIDE 10 MG/ML 5 ML VIAL ONE (09:45)
[2017-02-13] MEDS ORDERED: LIDOCAINE HCL 2% 2 ML VIAL (20MG/ML) ONE (09:45)
[2017-02-13] MEDS ORDERED: PROPOFOL IV EMULSION 10 MG/ML 20 ML VIAL IV ONE (09:45)
[2017-02-13] MEDS ORDERED: FENTANYL CITRATE INJ 50 MCG/1 ML 2 ML VIAL IV PRN (10:15)
[2017-02-13] MEDS ORDERED: ONDANSETRON INJ 2 MG/ML 2 ML VIAL IV PRN (10:15)
[2017-02-13] MEDS ORDERED: ATROPINE SULFATE 0.1 MG/ML 5ML SYR IV PRN (10:15)
[2017-02-13] MEDS ORDERED: EpHEDrine SULFATE INJ 50 MG/ML AMP IV PRN (10:15)
[2017-02-13] MEDS ORDERED: HYDROmorphone INJ 1 MG/ML SYR IV PRN (10:15)
--- NOTE | 2017-02-13 11:25 | [facility] Post Operative Brief Note ---
Immediate Operative Summary Operative Date February 13, 2017. Pre-Operative Diagnosis Sclerosing cholangitis acute and chronic cc Post-Operative Diagnosis Sclerosing cholangitis acute ccc Procedure(s) Performed Laparoscopic Cholecystectomy with Intraopertive Cholangiogram Surgeon Dr. Iyer Icd 9 Coder Surgeon(s) TESSY Cruz Estimated Blood Loss 0 ml Findings acute and ccc sclerosing cholangitis Specimens A. Gallbladder
--- NOTE | 2017-02-13 11:47 | DIAGNOSTIC IMAGING REPORT ---
CHOLANGIOGRAM O.R. CLINICAL HISTORY: Bile duct obstruction COMPARISON STUDY: MRCP dated 02/08/2017 FLUOROSCOPY TIME: 4 seconds. FINDINGS: Contrast was instilled into the common bile duct. There is irregular narrowing of the common bile duct, and common hepatic duct.. There is mild intrahepatic biliary ductal dilatation. There are subtle areas of equivocal beading within the intrahepatic biliary ducts. Contrast enters the duodenum. IMPRESSION: 1. Mild intrahepatic biliary ductal dilatation 2. Irregular narrowing of the common hepatic and common bile duct. 3. Likely considerations include cholangiocarcinoma, or primary sclerosing cholangitis. Electronically signed by: Jose De Jesus Vega M.D. 02/13/2017 11:46 AM Dictated Date/Time: 02/13/2017 11:43 AM
[2017-02-13] MEDS ORDERED: ESMOLOL HCL 10 MG/ML 10 ML VIAL ONE (11:50)
--- NOTE | 2017-02-13 12:03 | OPERATIVE REPORT ---
DATE OF OPERATION: 02/13/2017 PREOPERATIVE DIAGNOSIS: Acute and chronic cholecystitis, cholelithiasis, sclerosing cholangitis. POSTOPERATIVE DIAGNOSIS: Same. PROCEDURE: Laparoscopic cholecystectomy, intraoperative cholangiogram. SURGEON: Dr. Iyer. [employer]IVER: Danni Mckeon PA-C. OPERATION AND FINDINGS: SUMMARY: After induction of adequate general anesthesia, the patient's abdomen was prepped with Betadine scrubbing solution and properly draped. I made a small transverse incision supraumbilically enough to place a Veress needle followed by CO2 followed by a 5 mm trocar. We held the intra-abdominal pressure about 12 for this gentleman. At this point, under direct visualization, we placed a 5 mm epigastric, two 5 mm subcostal ports. The gallbladder could be seen. The omentum was strictly adherent to it. We took this down. There was some oozing from the omentum, it was attached to really thick-walled gallbladder. With the patient in reverse Trendelenburg resorted to the left were able to work our way down after we aspirated the gallbladder since it was quite tense of bilious greenish material. Once we got to the phuong hepatis area obviously markedly inflammatory response in that area. We were able to identify the cystic duct where we clipped it proximally. A small opening in the cystic duct was made. A #4 ureteral catheter transversed the abdominal wall was positioned in the cystic duct. Serial x-rays were taken which showed the typical chain [place] sclerosing very small common bile duct. At this point, we removed the cholangiocath and doubly clipped the cystic duct. We then took the gallbladder out in antegrade fashion, identifying the artery anterior and posterior branch clipping it. There was another small accessory branch we also clipped. The gallbladder we tried to remove leaving as much as posterior peritoneum intact as we could, but it was very hard and very thick-walled. A few areas we were not able to do that but eventually we were able to get the gallbladder out of the liver bed, placed in an Endopouch and taken out intact through the epigastric port where it was markedly inflamed and 2 stones, 1 was a flat stone, probably 1/8 of a centimeter and the other one similar bilirubinate type of stone. The subhepatic and suprahepatic area then was checked for hemostasis and appeared satisfactory. We cauterized any bleeding. There was no obvious significant bleeders. I elected to drain this with a [place] drain taken out medially, the umbilical port taken out lateral to the lateral port. After we placed a camera in subcostal port to visualize the umbilical opening making sure there were no adhesions to the initial entry. The drain was placed in Morison's pouch and attached to skin edges with 2-0 silk. We took all the drains out as close to the fascial stitch in the epigastric area with an 0 Vicryl [id number], the other ones were Monocryl. Steri-Strips applied. The procedure was tolerated well by the patient. Blood loss of 30 mL. The patient was taken to recovery room in good condition. Cultures were sent for gallbladder. ADDENDUM: I did speak with son by phone regarding the surgical procedure. I attest to the content of the Intraoperative Record and any orders documented therein. Any exceptions are noted below. MARK
--- NOTE | 2017-02-13 12:17 | Anesthesiology Progress Note ---
Anesthesia Post Op Note Date & Time February 13, 2017 at 12:17 Vital Signs Pain Intensity: 3 Vital Signs Past 12 Hours Date Time Temp Pulse Resp B/P Pulse Ox O2 Delivery O2 Flow Rate FiO2 02/13/17 12:10 81 15 161/95 95 Nasal Cannula 2 02/13/17 12:00 81 14 175/91 98 Mask 10 02/13/17 11:50 79 17 171/96 97 Mask 10 02/13/17 11:40 37.0 79 12 175/90 98 Mask 10 02/13/17 07:20 36.4 85 18 153/90 94 Room Air 02/13/17 07:15 Room Air 02/13/17 03:17 Room Air 02/13/17 03:00 92 161/79 Notes Mental Status: alert / awake / arousable, participated in evaluation Pt Amnestic to Procedure: Yes Nausea / Vomiting: adequately controlled Pain: adequately controlled Airway Patency, RR, SpO2: stable & adequate BP & HR: stable & adequate Hydration State: stable & adequate Anesthetic Complications: no major complications apparent
[2017-02-13] MEDS: LACTATED RINGER'S 1000ML 1,000 ML IV SCH (12:49)
[2017-02-13] MEDS: CIPROFLOXACIN / D5W 400 MG in PREMIXED IN D5W 200 ML IV SCH ×2 (12:49)
[2017-02-13] MEDS: OXYCODONE/ACETAMINOPHEN 5-325 TAB PO PRN ×3 (14:37→23:44)
--- NOTE | 2017-02-13 17:57 | Progress Note ---
Internal Med Progress Note Date of Service: February 13, 2017. Provider Documentation: SUBJECTIVE: s/p laparoscopic cholecystectomy today recovering well post op minimum pain in abdomen at incision site finished low fat diet for dinner no nausea , no fever or chills OBJECTIVE: Vital Signs-as noted below Exam: General-no sign of distress . conversing Lungs-CTA Heart-regular S1/S2 Abdomen-laparoscopic incision site intact , small drain on rt upper quadrant Extremities-no lower ext edema Neuro-AAO x3, no focal deficit Lab data as noted below. ASSESSMENT & PLAN: 77 year old male with history of Hypertension, BPH, Dyslipidemia presented with epigastric pain x 2 days. 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 Mild intrahepatic bile duct dilatation to the level of the extrahepatic bile duct bifurcation. There is severely narrowed/decompressed common bile duct. No filling defects seen within the common bile duct. These findings raise the possibility of an occult obstructing lesion at the bifurcation of the extra hepatic bile ducts. Follow-up ERCP is recommended to exclude the possibility of a cholangiocarcinoma. 2. Periportal edema with trace perihepatic ascites. This could be due to underlying hepatic pathology such as a hepatitis. 3. Mildly distended gallbladder containing a few small stones and mild gallbladder wall thickening. This raises the possibility of acute cholecystitis. In addition, a hepatitis could also result in diffuse gallbladder wall thickening. Clinical correlation recommended. - started on Cipro + Metro IV day # 6 Morphine IV PRN for pain - consulted surgery Dr. Iyer and GI Dr. Chapa - S/P ERCP/EUS Dr Chapa s EUS results: no biliary mass seen Severe erosive esophagitis ERCP: diffuse irregularity of the CBD and intrahepatics (punning and small sacculations) consistent with PSC ( primary sclerosing cholangitis ) Hepatic MRI with gadolinium does not show any definitive dx IMPRESSION: Mildly improved exam. No significant gallbladder wall edema on the current study. Persistent intrahepatic biliary ductal prominence. Persistent gravel versus small amount of sludge within the deep dependent aspect of the gallbladder. Several small unchanged renal cysts. Continue antibiotic coverage for a total of 2 weeks-as per GI Protonix 40 mg bid for 6 weeks GI Clinic follow-up in 6 to 8 weeks appreciate Surgery eval , s/p cholecystectomy today recovering well post op possible discharge home tomorrow ELEVATED TRANSAMINASE : due to above follow LFT's D/c Statin ordered for EITAN , Ig M , P-ANCA level for PSC -reference lab pt can follow up with GI in office for the lab reports ABDOMINAL AORTIC ANEURYSM - 3.5cm - already on aspirin -Statin D/christen for elevated liver function - surveillance CT abdomen every year for follow up RIGHT RENAL STONE - no obstruction - renal function stable DVT prophylaxis - SCDs /TEds ambulate pharmacological anticoagulation avoided due to surgical procedure Code Status - full code Disposition possible discharge home tomorrow Medicine follow up at [facility] will need to have close follow up with [facility] Surgery follow up post op cholecystectomy Vital Signs: Date Time Temp Pulse Resp B/P Pulse Ox O2 Delivery O2 Flow Rate FiO2 02/14/17 15:42 165/92 02/14/17 15:09 36.4 104 16 166/85 92 Room Air 02/14/17 08:15 Room Air 02/14/17 07:25 36.5 84 16 158/74 93 2.0 02/14/17 03:13 36.5 72 18 151/88 96 2.0 02/13/17 23:51 36.5 104 22 158/77 96 02/13/17 23:30 Nasal Cannula 2.0 Lab Results: Results Past 24 Hours Test 02/14/17 06:20 Range/Units White Blood Count 7.12 4.8-10.8 K/uL Red Blood Count 4.47 4.7-6.1 M/uL Hemoglobin 13.8 14.0-18.0 g/dL Hematocrit 39.6 42-52 % Mean Corpuscular Volume 88.6 80-100 fL Mean Corpuscular Hemoglobin 30.9 25-34 pg Mean Corpuscular Hemoglobin Concent 34.8 32-36 g/dl Platelet Count 226 130-400 K/uL Mean Platelet Volume 9.6 7.4-10.4 fL Neutrophils (%) (Auto) 81.6 % Lymphocytes (%) (Auto) 8.4 % Monocytes (%) (Auto) 8.4 % Eosinophils (%) (Auto) 1.4 % Basophils (%) (Auto) 0.1 % Neutrophils # (Auto) 5.80 1.4-6.5 K/uL Lymphocytes # (Auto) 0.60 1.2-3.4 K/uL Monocytes # (Auto) 0.60 0.11-0.59 K/uL Eosinophils # (Auto) 0.10 0-0.5 K/uL Basophils # (Auto) 0.01 0-0.2 K/uL RDW Standard Deviation 44.9 36.4-46.3 fL RDW Coefficient of Variation 13.7 11.5-14.5 % Immature Granulocyte % (Auto) 0.1 % Immature Granulocyte # (Auto) 0.01 0.00-0.02 K/uL Sodium Level 138 136-145 mmol/L Potassium Level 3.4 3.5-5.1 mmol/L Chloride Level 105 98-107 mmol/L Carbon Dioxide Level 24 21-32 mmol/L Anion Gap 9.0 3-11 mmol/L Blood Urea Nitrogen 10 7-18 mg/dl Creatinine 0.83 0.60-1.40 mg/dl Est Creatinine Clear Calc Drug Dose 68.3 ml/min Estimated GFR () 99.1 Estimated GFR (Non- 85.5 BUN/Creatinine Ratio 12.0 10-20 Random Glucose 111 70-99 mg/dl Calcium Level 9.1 8.5-10.1 mg/dl Magnesium Level 2.1 1.8-2.4 mg/dl Total Bilirubin 1.9 0.2-1 mg/dl Direct Bilirubin 1.0 0-0.2 mg/dl Aspartate Amino Transf (AST/SGOT) 161 15-37 U/L Alanine Aminotransferase (ALT/SGPT) 111 12-78 U/L Alkaline Phosphatase 406 45-117 U/L Total Protein 6.6 6.4-8.2 gm/dl Albumin 3.0 3.4-5.0 gm/dl
[2017-02-13] MEDS: HEPARIN SOD 5000 UNIT/0.5 ML CARP SQ SCH (20:30)
[2017-02-13] MEDS: POTASSIUM CHLR 10 MEQ / WTR 10 MEQ in PREMIXED WATER 100 ML IV SCH ×2 (20:30→22:42)
[2017-02-14] VITALS (7 sets, daily range): BP systolic 149–166; BP diastolic 74–92; PULSE 72–104; TEMP 36.4–36.5; O2SAT 92–96
[2017-02-14] MEDS: CIPROFLOXACIN / D5W 400 MG in PREMIXED IN D5W 200 ML IV SCH ×2 (00:58→13:14)
[2017-02-14] MEDS: LACTATED RINGER'S 1000ML 1,000 ML IV SCH ×2 (01:00→14:13)
[2017-02-14 06:43] LABS: BASO % 0.1 %; BASO ABS # 0.01 K/uL (0-0.2); COMPLETE YES; EOS % 1.4 %; HEMATOCRIT 39.6 % (42-52); IG% 0.1 %; LYMPH % 8.4 %; MEAN CELL VOLUME 88.6 fL (80-100); MEAN CORPUSCULAR HEMOGLOBIN 30.9 pg (25-34); MEAN CORPUSCULAR HGB CONC 34.8 g/dl (32-36); MEAN PLATELET VOLUME 9.6 fL (7.4-10.4); MONO % 8.4 %; NEUT % 81.6 %; PLATELET COUNT 226 K/uL (130-400); RED BLOOD COUNT 4.47 M/uL (4.7-6.1); WHITE BLOOD COUNT 7.12 K/uL (4.8-10.8)
--- NOTE | 2017-02-14 07:19 | SURGERY PROGRESS NOTE ---
DATE: 02/14/2017 Kenji is first postoperative day status post laparoscopic cholecystectomy, intraoperative cholangiogram. He is resting comfortably, wants to go home. Intraoperative findings were discussed with the patient. Last vitals showed a temperature of 36.5, pulse 72, respirations 18, blood pressure 151/88, O2 sat is 96 on 2 liters. I\T\O he has been slightly positive in the last few days. The Scott-Chin drainage shows minimal serosanguineous, nonbilious drainage, but we will leave that in. The abdomen is completely benign. From my point of view, the patient can be discharged. Instructions for him to return to our office on Friday and at that time we will remove the drain. He should not lift anything heavier than 10 pounds. He may shower. No driving. I do not see any need for any antibiotic therapy, just some oral analgesics.
[2017-02-14 07:29] LABS: CALCIUM 9.1 mg/dl (8.5-10.1); CREATININE 0.83 mg/dl (0.60-1.40); MAGNESIUM 2.1 mg/dl (1.8-2.4); POTASSIUM 3.4 mmol/L (3.5-5.1)
[2017-02-14] MEDS ORDERED: OXYC-57 PO (07:46)
--- NOTE | 2017-02-14 07:53 | Discharge Instructions ---
Discharge Instructions Date of Service February 14, 2017. Admission Reason for Admission: Acute Cholecystitis Discharge Discharge Diagnosis / Problem: Acute Cholecystitis Discharge Goals Goal(s): Decrease discomfort, Improve function Activity Recommendations Activity Limitations: as noted below Lifting Limitations: no more than 10 pounds Exercise/Sports Limitations: until after follow-up appointment May Resume Sexual Activity: after follow-up appointment Shower/Bathe: tomorrow Driving or Machine Use: resume 3 days after discharge . Instructions / Follow-Up Instructions / Follow-Up Please report to the office on 02/17/2017 to have your drain removed. Please call the office at [phone] to make an appointment. Please call the office at [phone] with any questions or concerns. Current Hospital Diet Patient's current hospital diet: Low Fat Diet Discharge Diet Recommended Diet: Low Fat Diet Procedures Procedures Performed: Laparoscopic Cholecystectomy with Intraopertive Cholangiogram Pending Studies Studies pending at discharge: yes List of pending studies: Pathology report. Medical Emergencies . Who to Call and When: Medical Emergencies: If at any time you feel your situation is an emergency, please call 911 immediately. . Non-Emergent Contact Non-Emergency issues call your: Primary Care Provider, Surgeon Call Non-Emergent contact if: temperature is above 101.5, your pain is not controlled, your pain is worsening, wound has increased drainage, wound has increased redness . "Provider Documentation" section prepared by Danni Mckeon. . VTE Core Measure Inpt VTE Proph given/why not?: Unfractionated heparin SQ, T.E.D. Stockings, SCD 's [place] Drug Monitoring Program Search Results: patient reviewed within database, no issues identified
--- NOTE | 2017-02-14 08:13 | Anesthesiology Progress Note ---
Anesthesia Post Op Note Date & Time February 14, 2017 at 08:14 Vital Signs Vital Signs Past 12 Hours Date Time Temp Pulse Resp B/P Pulse Ox O2 Delivery O2 Flow Rate FiO2 02/14/17 07:25 36.5 84 16 158/74 93 2.0 02/14/17 03:13 36.5 72 18 151/88 96 2.0 02/13/17 23:51 36.5 104 22 158/77 96 02/13/17 23:30 Nasal Cannula 2.0 Notes Mental Status: alert / awake / arousable, participated in evaluation Pt Amnestic to Procedure: Yes Nausea / Vomiting: adequately controlled Pain: adequately controlled Airway Patency, RR, SpO2: stable & adequate BP & HR: stable & adequate Hydration State: stable & adequate Anesthetic Complications: no major complications apparent
[2017-02-14] MEDS: METRONIDAZOLE / NSS 500 MG in PREMIXED NSS 100 ML IV SCH ×2 (09:24→15:51)
[2017-02-14] MEDS: PANTOprazole INJ 40 MG in SYRINGE 0 ML IV SCH (09:26)
[2017-02-14] MEDS: TAMSULOSIN HCL 0.4 MG CAP PO SCH (09:27)
[2017-02-14] MEDS: HEPARIN SOD 5000 UNIT/0.5 ML CARP SQ SCH (11:21)
[2017-02-14] MEDS: HydrALAZINE HCL 20 MG/ML VIAL IV. PRN (15:49)
[2017-02-14] MEDS ORDERED: DOCU-94 PO (16:27)
--- NOTE | 2017-02-14 16:46 | Discharge Summary ---
Discharge Summary Date of Service February 14, 2017. Discharge Summary Admission Date: Feb 08, 2017 at 07:59 Discharge Date: February 15, 2017 Discharge Disposition: Home Principal Diagnosis: PRIMARY SCLEROSING CHOLANGITIS/ACUTE CHOLECYSTITIS Procedures: February BY DR MOY Endoscopic Retrograde Cholangiopancreatography with bile duct dilation and sphincterotomy; Upper Endoscopic Ultrasonography February BY DR SPENCER Laparoscopic Cholecystectomy with Intraopertive Cholangiogram Consultations: SURGERY GASTROENTEROLOGY Medication Reconciliation New Medications: Ciprofloxacin (Ciprofloxacin HCl) 500 Mg Tab 1 TABS PO BID for 14 Days, #28 TAB Docusate Sodium (Colace) 100 Mg Cap 1 CAP PO BID for 15 Days, #30 CAP OVER THE COUNTER TAKE WHEN TAKING PAIN MEDICATION TO PREVENT CONSTIPATION Metronidazole (Flagyl) 500 Mg Tab 500 MG PO TID for 14 Days, #42 TAB Oxycodone/Acetaminophen 5MG/325MG (Percocet 5MG/325MG) Tab 1-2 TABLETS PO Q4H PRN for Pain for 3 Days, #30 TAB Pantoprazole Sodium (Protonix) 40 Mg Tab 1 TAB PO BID for 30 Days, #60 TAB 5 Refills Continued Medications: Aspirin (Aspirin Ec) 81 Mg Tab 81 MG PO DAILY Cholecalciferol (Vitamin D3) 2,000 Unit Tab 2000 UNITS PO DAILY, TAB Coenzyme Q10 (Ubidecarenone) (Co Q 10) 100 Mg Cap 100 MG PO DAILY Fish Oil-Cholecalciferol (Fish Oil + D3) 1 Cap Cap 1 CAPSULE PO DAILY Tamsulosin Hcl (Flomax) 0.4 Mg Cap 0.4 MG PO DAILY, CAP Discontinued Medications: Atorvastatin (Atorvastatin Calcium) 10 Mg Tab 10 MG PO DAILY Ezetimibe (Zetia) 10 Mg Tab 10 MG PO DAILY, TAB Ibuprofen (Motrin) 600 Mg Tab 600 MG PO Q6H PRN for Pain, TAB TAKE WITH FOOD Referrals At Discharge Follow up Referrals: Technical Staff Engineer Referral - Within 6 Weeks with Morales Chapa DO Physician Referral - 02/19/17 with Agustin Thompson M.D. Surgery Referral - 02/17/17 with Amor Spencer M.D. Admission Information HPI (per Admitting provider): 77 year old male with history of Hypertension, BPH, Dyslipidemia presenting with epigastric pain x [address] Gabriel for Primary Care. Patient reports 2 day history of steady epigastric/central abdominal pain, dull , non radiating, no other associated symptoms. Denies fever/chills, nausea, changes with urination or bowel movements. The pain persisted and increased prompting ER consult. At the ER, he was received with stable vital signs overall, afebrile, no leukocytosis but with elevated LFTs. CT Abdomen showed cholelithiasis with possible cholecystitis. General Surgery notified. He has been given Zosyn, Flagyl and Morphine. On exam, patient was seen resting in bed, appears comfortable, very pleasant. He states his pain level has improved- now mild. No nausea, chills, chest pain, dyspnea. Denies other symptoms. Physical Exam (per Admitting): General Appearance: WD/WN, no apparent distress Head: normocephalic, atraumatic Eyes: normal inspection, EOMI, sclerae normal ENT: pharynx normal, + pertinent finding (hard of hearing) Neck: supple, no adenopathy, thyroid normal, no JVD, trachea midline Respiratory/Chest: chest non-tender, lungs clear, normal breath sounds, no respiratory distress, no accessory muscle use Cardiovascular: regular rate, rhythm, no edema, no JVD, no murmur, normal peripheral pulses Abdomen/GI: soft, no organomegaly, + tenderness (epigastric region), + abnormal bowel sounds (hypoactive) Back: normal inspection, no CVA tenderness Extremities/Musculoskelatal: normal inspection, no calf tenderness, normal capillary refill, no pedal edema, normal range of motion Neurologic/Psych: wood calker II-XII nml as tested, no motor/sensory deficits, alert , normal mood/affect, normal reflexes, oriented x 3 Skin: normal color, warm/dry, no rash Lymphatic: no adenopathy Hospital Course 77 year old male with history of Hypertension, BPH, Dyslipidemia presented with epigastric pain x 2 days. 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 Mild intrahepatic bile duct dilatation to the level of the extrahepatic bile duct bifurcation. There is severely narrowed/decompressed common bile duct. No filling defects seen within the common bile duct. These findings raise the possibility of an occult obstructing lesion at the bifurcation of the extra hepatic bile ducts. Follow-up ERCP is recommended to exclude the possibility of a cholangiocarcinoma. 2. Periportal edema with trace perihepatic ascites. This could be due to underlying hepatic pathology such as a hepatitis. 3. Mildly distended gallbladder containing a few small stones and mild gallbladder wall thickening. This raises the possibility of acute cholecystitis. In addition, a hepatitis could also result in diffuse gallbladder wall thickening. Clinical correlation recommended. - started on empiric ABx Cipro /Flagyl Morphine IV PRN for pain - consulted surgery Dr. Spencer and GI Dr. Chapa - S/P ERCP/EUS Dr Chapa EUS results: no biliary mass seen Severe erosive esophagitis ERCP: diffuse irregularity of the CBD and intrahepatics (punning and small sacculations) consistent with PSC ( primary sclerosing cholangitis ) Hepatic MRI with gadolinium does not show any definitive dx IMPRESSION: Mildly improved exam. No significant gallbladder wall edema on the current study. Persistent intrahepatic biliary ductal prominence. Persistent gravel versus small amount of sludge within the deep dependent aspect of the gallbladder. Several small unchanged renal cysts. Continue antibiotic coverage for a total of 2 weeks-as per GI Protonix 40 mg bid for 6 weeks GI Clinic follow-up in 6 to 8 weeks appreciate Surgery eval , s/p cholecystectomy POD # 2 recovering well post op evaluated by surgery stable to be discharged home office follow up on Friday02/17/17 to remove MAC drain pt is asked to call office in AM to confirm the time ELEVATED TRANSAMINASE : due to above follow LFT's D/c Statin ordered for EITAN , Ig M , P-ANCA level for PSC -reference lab pt can follow up with GI in office for the lab reports repeat LFT with next office visit ABDOMINAL AORTIC ANEURYSM - 3.5cm - already on aspirin -Statin D/christen for elevated liver function - surveillance CT abdomen every year for follow up RIGHT RENAL STONE - no obstruction - renal function stable DVT prophylaxis - SCDs /TEds ambulate pharmacological anticoagulation avoided due to surgical procedure Code Status - full code Disposition discharge home today Medicine follow up at [facility] will need to have close follow up with [facility] GI [facility] Surgery follow up post op cholecystectomy Total time spent on discharge = 45 MINS This includes examination of the patient, discharge planning, medication reconciliation, and communication with other providers. Discharge Instructions Discharge Instructions Date of Service February 12, 2017. Admission Reason for Admission: Acute Cholecystitis Discharge Discharge Diagnosis / Problem: PRIMARY SCLEROSING CHOLANGITIS/ACUTE CHOLECYSTITIS Discharge Goals Goal(s): Decrease discomfort, Improve disease control, Diagnostic testing, Therapeutic intervention Activity Recommendations Activity Limitations: as noted below Lifting Limitations: no more than 10 pounds Exercise/Sports Limitations: until after follow-up appointment May Resume Sexual Activity: after follow-up appointment Shower/Bathe: no limitations Driving or Machine Use: resume 3 days after discharge . Instructions / Follow-Up Instructions / Follow-Up SURGERY FOLLOW UP WITH DR SPENCER OFFICE AT [address] [place] [address] [place] Please report to the office on 02/17/2017 to have your drain removed. Please call the office at [phone] to make an appointment. Please call the office at [phone] with any questions or concerns. GASTROENTEROLOGY FOLLOW UP IN 2-3 WEEK , OFFICE WILL CALL WITH APPOINTMENT MEDICINE FOLLOW UP WITH DR JIMENEZ ON 02/19/2017 1:00 PM Agustin Thompson MD Internal Medicine [facility] ABDOMINAL AORTIC ANEURYSM - 3.5cm - surveillance CT abdomen every year for follow up Current Hospital Diet Patient's current hospital diet: LOW FAT Diet Discharge Diet Recommended Diet: Low Fat Diet Procedures Procedures Performed: Endoscopic Retrograde Cholangiopancreatography with bile duct dilation and sphincterotomy; Upper Endoscopic Ultrasonography Pending Studies Studies pending at discharge: yes List of pending studies: LIVER FUNCTION TEST ON 02/19/17 Medical Emergencies . Who to Call and When: Medical Emergencies: If at any time you feel your situation is an emergency, please call 911 immediately. . Non-Emergent Contact Non-Emergency issues call your: Primary Care Provider, Surgeon Call Non-Emergent contact if: you have a fever temperature is above 101.5, your pain is not controlled, your pain is worsening , wound has increased drainage, wound has increased redness . . . "Provider Documentation" section prepared by Julieta Aceves. . VTE Core Measure Inpt VTE Proph given/why not?: LUCIO Leal[place] Drug Monitoring Program Search Results: no issues identified Additional Copies To Agustin Thompson M.D. Duncan, Marten B., DO
--- NOTE | 2017-02-14 17:26 | Progress Note ---
Internal Med Progress Note Date of Service: February 14, 2017. Provider Documentation: SUBJECTIVE: pt was ready to be discharged , felt dizzy and lightheaded with attempt to sit up no complain of SOB BP 149 /70 , HR in 100 got IV hydralazine 10 mg at 4 pm for SBP being in 165 will hold discharge home today observe overnight check orthostatic vitals will D/c IV Hydralazine for potential of sudden drop in SBP causing reflex tachycardia and dizzy spell discharge home tomorrow if BP remains stable no symptom of dizzy spell pt and Son in agreement OBJECTIVE: Vital Signs-as noted below Exam: General-no sign of distress . conversing Lungs-CTA Heart-regular S1/S2 Abdomen-laparoscopic incision site intact , small drain on rt upper quadrant . bowel sound active Extremities-no lower ext edema Neuro-AAO x3, no focal deficit Lab data as noted below. ASSESSMENT & PLAN: 77 year old male with history of Hypertension, BPH, Dyslipidemia presented with epigastric pain x 2 days. 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 Mild intrahepatic bile duct dilatation to the level of the extrahepatic bile duct bifurcation. There is severely narrowed/decompressed common bile duct. No filling defects seen within the common bile duct. These findings raise the possibility of an occult obstructing lesion at the bifurcation of the extra hepatic bile ducts. Follow-up ERCP is recommended to exclude the possibility of a cholangiocarcinoma. 2. Periportal edema with trace perihepatic ascites. This could be due to underlying hepatic pathology such as a hepatitis. 3. Mildly distended gallbladder containing a few small stones and mild gallbladder wall thickening. This raises the possibility of acute cholecystitis. In addition, a hepatitis could also result in diffuse gallbladder wall thickening. Clinical correlation recommended. - started on empiric ABx Cipro /Flagyl Morphine IV PRN for pain - consulted surgery Dr. Iyer and GI Dr. Chapa - S/P ERCP/EUS Dr Chapa EUS results: no biliary mass seen Severe erosive esophagitis ERCP: diffuse irregularity of the CBD and intrahepatics (punning and small sacculations) consistent with PSC ( primary sclerosing cholangitis ) Hepatic MRI with gadolinium does not show any definitive dx IMPRESSION: Mildly improved exam. No significant gallbladder wall edema on the current study. Persistent intrahepatic biliary ductal prominence. Persistent gravel versus small amount of sludge within the deep dependent aspect of the gallbladder. Several small unchanged renal cysts. Continue antibiotic coverage for a total of 2 weeks-as per GI Protonix 40 mg bid for 6 weeks GI Clinic follow-up in 6 to 8 weeks appreciate Surgery eval , s/p cholecystectomy POD # 1 recovering well post op evaluated by surgery stable to be discharged home office follow up on Friday02/17/17 to remove MAC drain ELEVATED TRANSAMINASE : due to above follow LFT's D/c Statin ordered for EITAN , Ig M , P-ANCA level for PSC -reference lab pt can follow up with GI in office for the lab reports repeat LFT with next office visit ABDOMINAL AORTIC ANEURYSM - 3.5cm - already on aspirin -Statin D/christen for elevated liver function - surveillance CT abdomen every year for follow up RIGHT RENAL STONE - no obstruction - renal function stable DVT prophylaxis - SCDs /TEds ambulate pharmacological anticoagulation avoided due to surgical procedure Code Status - full code Disposition Developed Dizzy spell on sitting and standing hold discharge today , observe overnight possible discharge home tomorrow Medicine follow up at [facility] will need to have close follow up with [facility] GI Clinic Surgery follow up post op cholecystectomy Vital Signs: Date Time Temp Pulse Resp B/P Pulse Ox O2 Delivery O2 Flow Rate FiO2 02/14/17 16:44 36.4 104 16 92 Room Air 02/14/17 15:42 165/92 02/14/17 15:09 36.4 104 16 166/85 92 Room Air 02/14/17 08:15 Room Air 02/14/17 07:25 36.5 84 16 158/74 93 2.0 02/14/17 03:13 36.5 72 18 151/88 96 2.0 02/13/17 23:51 36.5 104 22 158/77 96 02/13/17 23:30 Nasal Cannula 2.0 Lab Results: Results Past 24 Hours Test 02/14/17 06:20 Range/Units White Blood Count 7.12 4.8-10.8 K/uL Red Blood Count 4.47 4.7-6.1 M/uL Hemoglobin 13.8 14.0-18.0 g/dL Hematocrit 39.6 42-52 % Mean Corpuscular Volume 88.6 80-100 fL Mean Corpuscular Hemoglobin 30.9 25-34 pg Mean Corpuscular Hemoglobin Concent 34.8 32-36 g/dl Platelet Count 226 130-400 K/uL Mean Platelet Volume 9.6 7.4-10.4 fL Neutrophils (%) (Auto) 81.6 % Lymphocytes (%) (Auto) 8.4 % Monocytes (%) (Auto) 8.4 % Eosinophils (%) (Auto) 1.4 % Basophils (%) (Auto) 0.1 % Neutrophils # (Auto) 5.80 1.4-6.5 K/uL Lymphocytes # (Auto) 0.60 1.2-3.4 K/uL Monocytes # (Auto) 0.60 0.11-0.59 K/uL Eosinophils # (Auto) 0.10 0-0.5 K/uL Basophils # (Auto) 0.01 0-0.2 K/uL RDW Standard Deviation 44.9 36.4-46.3 fL RDW Coefficient of Variation 13.7 11.5-14.5 % Immature Granulocyte % (Auto) 0.1 % Immature Granulocyte # (Auto) 0.01 0.00-0.02 K/uL Sodium Level 138 136-145 mmol/L Potassium Level 3.4 3.5-5.1 mmol/L Chloride Level 105 98-107 mmol/L Carbon Dioxide Level 24 21-32 mmol/L Anion Gap 9.0 3-11 mmol/L Blood Urea Nitrogen 10 7-18 mg/dl Creatinine 0.83 0.60-1.40 mg/dl Est Creatinine Clear Calc Drug Dose 68.3 ml/min Estimated GFR () 99.1 Estimated GFR (Non- 85.5 BUN/Creatinine Ratio 12.0 10-20 Random Glucose 111 70-99 mg/dl Calcium Level 9.1 8.5-10.1 mg/dl Magnesium Level 2.1 1.8-2.4 mg/dl Total Bilirubin 1.9 0.2-1 mg/dl Direct Bilirubin 1.0 0-0.2 mg/dl Aspartate Amino Transf (AST/SGOT) 161 15-37 U/L Alanine Aminotransferase (ALT/SGPT) 111 12-78 U/L Alkaline Phosphatase 406 45-117 U/L Total Protein 6.6 6.4-8.2 gm/dl Albumin 3.0 3.4-5.0 gm/dl
[2017-02-14] MEDS ORDERED: ONDANSETRON 4MG OD TAB PO PRN (17:30)
[2017-02-14] MEDS ORDERED: LORAZEPAM 0.5 MG TAB PO PRN (17:30)
[2017-02-14] MEDS: OXYCODONE/ACETAMINOPHEN 5-325 TAB PO PRN ×2 (19:04→23:48)
[2017-02-14] MEDS: CIPROFLOXACIN 500 MG TAB PO SCH (20:59)
[2017-02-14] MEDS: METRONIDAZOLE 500 MG TAB PO SCH (20:59)
[2017-02-15 08:00] VITALS: BP 163/87; PULSE 96; TEMP 36.7; O2SAT 95
[2017-02-15] MEDS: OXYCODONE/ACETAMINOPHEN 5-325 TAB PO PRN ×2 (08:00→12:13)
[2017-02-15] MEDS ORDERED: PANTOprazole SOD 40 MG TAB PO SCH (09:00)
[2017-02-15] MEDS: CIPROFLOXACIN 500 MG TAB PO SCH (09:04)
[2017-02-15] MEDS: METRONIDAZOLE 500 MG TAB PO SCH ×2 (09:04→14:22)
[2017-02-15] MEDS: TAMSULOSIN HCL 0.4 MG CAP PO SCH (09:04)
[2017-02-15 09:54] VITALS: O2SAT 95
[2017-02-15 11:40] VITALS: BP 166/97; PULSE 99; TEMP 36.5; O2SAT 92
[2017-02-15 12:55] VITALS: BP_SYST 134; BP_SYST 153; BP_SYST 154; BP_DIAS 77; BP_DIAS 78; BP_DIAS 88; PULSE 108; PULSE 114; PULSE 132
[2017-02-15 13:36] VITALS: BP 153/77; PULSE 132; TEMP 36.5; O2SAT 92
--- NOTE | 2017-02-15 15:57 | Progress Note ---
Internal Med Progress Note Date of Service: February 15, 2017. Provider Documentation: SUBJECTIVE: feels much better today had mild dizzy spell earlier when sitting up for orthostatic vitals while standing his symptom was resolved pt found ambulating independently to bathroom , no complain of dizzy spell or lightheadedness stable to be discharged home today OBJECTIVE: Vital Signs-as noted below Exam: General-no sign of distress . conversing Lungs-CTA Heart-regular S1/S2 Abdomen-laparoscopic incision site intact , small drain on rt upper quadrant . bowel sound active Extremities-no lower ext edema Neuro-AAO x3, no focal deficit Lab data as noted below. ASSESSMENT & PLAN: 77 year old male with history of Hypertension, BPH, Dyslipidemia presented with epigastric pain x 2 days. 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 Mild intrahepatic bile duct dilatation to the level of the extrahepatic bile duct bifurcation. There is severely narrowed/decompressed common bile duct. No filling defects seen within the common bile duct. These findings raise the possibility of an occult obstructing lesion at the bifurcation of the extra hepatic bile ducts. Follow-up ERCP is recommended to exclude the possibility of a cholangiocarcinoma. 2. Periportal edema with trace perihepatic ascites. This could be due to underlying hepatic pathology such as a hepatitis. 3. Mildly distended gallbladder containing a few small stones and mild gallbladder wall thickening. This raises the possibility of acute cholecystitis. In addition, a hepatitis could also result in diffuse gallbladder wall thickening. Clinical correlation recommended. - started on empiric ABx Cipro /Flagyl Morphine IV PRN for pain - consulted surgery Dr. Iyer and GI Dr. Chapa - S/P ERCP/EUS Dr Chapa EUS results: no biliary mass seen Severe erosive esophagitis ERCP: diffuse irregularity of the CBD and intrahepatics (punning and small sacculations) consistent with PSC ( primary sclerosing cholangitis ) Hepatic MRI with gadolinium does not show any definitive dx IMPRESSION: Mildly improved exam. No significant gallbladder wall edema on the current study. Persistent intrahepatic biliary ductal prominence. Persistent gravel versus small amount of sludge within the deep dependent aspect of the gallbladder. Several small unchanged renal cysts. Continue antibiotic coverage for a total of 2 weeks-as per GI Protonix 40 mg bid for 6 weeks GI Clinic follow-up in 6 to 8 weeks appreciate Surgery eval , s/p cholecystectomy POD # 2 recovering well post op evaluated by surgery stable to be discharged home office follow up on Friday02/17/17 to remove MAC drain pt is asked to call office in AM to confirm the time ELEVATED TRANSAMINASE : due to above follow LFT's D/c Statin ordered for EITAN , Ig M , P-ANCA level for PSC -reference lab pt can follow up with GI in office for the lab reports repeat LFT with next office visit ABDOMINAL AORTIC ANEURYSM - 3.5cm - already on aspirin -Statin D/christen for elevated liver function - surveillance CT abdomen every year for follow up RIGHT RENAL STONE - no obstruction - renal function stable DVT prophylaxis - SCDs /TEds ambulate pharmacological anticoagulation avoided due to surgical procedure Code Status - full code Disposition discharge home today Medicine follow up at [facility] will need to have close follow up with [facility] Surgery follow up post op cholecystectomy Vital Signs: Date Time Temp Pulse Resp B/P Pulse Ox O2 Delivery O2 Flow Rate FiO2 02/15/17 13:36 36.5 132 16 92 Room Air 02/15/17 12:55 108 154/88 114 134/78 132 153/77 02/15/17 11:40 36.5 99 16 166/97 92 Room Air 02/15/17 09:54 95 Room Air 02/15/17 08:00 Room Air 02/15/17 08:00 36.7 96 16 163/87 95 Room Air 02/14/17 23:45 Room Air 02/14/17 22:52 36.5 92 16 155/82 92 Room Air 02/14/17 19:00 Room Air 02/14/17 17:30 100 149/82 02/14/17 16:44 36.4 104 16 92 Room Air
== END 2017-02-15 15:00 | disposition home or self-care (01) | DRG 418 ==
LOC: ENRESERVTM → ENRESERVDT → C.EDB 04:34 → C.MSW 07:59
PROVIDERS: ADMIT Internal Medicine; ATTEND Hospitalist
PROC: 0F798ZZ Dilation of Common Bile Duct, Via Natural or Artificial Opening Endoscopic (ICD-10-PCS; 2017-02-13)
PROC: BD49ZZZ Ultrasonography of Duodenum (ICD-10-PCS; 2017-02-13)
PROC: BF131ZZ Fluoroscopy of Gallbladder and Bile Ducts using Low Osmolar Contrast (ICD-10-PCS; principal; 2017-02-13 10:15)
PROC: 0FT44ZZ Resection of Gallbladder, Percutaneous Endoscopic Approach (ICD-10-PCS; principal; 2017-02-13 10:15)
DX: K80.12 Calculus of gallbladder with acute and chronic cholecystitis without obstruction (principal); K83.0 Cholangitis; E78.5 Hyperlipidemia, unspecified; I10 Essential (primary) hypertension; N40.0 Benign prostatic hyperplasia without lower urinary tract symptoms; I71.4 Abdominal aortic aneurysm, without rupture; N20.0 Calculus of kidney; K29.00 Acute gastritis without bleeding; Z87.891 Personal history of nicotine dependence